=== PATIENT | female | born 1960 | race Caucasian/White ===

== ENCOUNTER 2020-11-12 11:19 | Inpatient (IN) ==
[2020-11-12] MEDS ORDERED: ALBUT/IPRATROP 3MG/0.5MG NEB 3 ML VIAL NEB ONE (11:52)
[2020-11-12 12:04] LABS: Hematocrit (blood only) 39.8 % (37-47); Hemoglobin 12.7 g/dL (12.0-16.0); Immature Granulocytes # (auto) 0.02 K/uL (0.00-0.02); Immature Granulocytes % (auto) 0.3 %; Lymphocytes # (auto) 0.36 K/uL (1.2-3.4); Lymphocytes % (auto) 4.8 %; Mean Corpuscular Hemoglobin 33.2 pg (25-34); Mean Corpuscular Hgb Conc 31.9 g/dL (32-36); Mean Corpuscular Volume 104.2 fL (80-100); Mean Platelet Volume 9.8 fL (7.4-10.4); Monocytes # (auto) 0.45 K/uL (0.11-0.59); Neutrophils # (auto) 6.72 K/uL (1.4-6.5); Neutrophils % (auto) 88.9 %; Platelet Count 244 K/uL (130-400); RDW Coefficient of Variation 14.3 % (11.5-14.5); RDW Standard Deviation 54.9 fL (36.4-46.3); Red Blood Count 3.82 M/uL (4.2-5.4); White Blood Count 7.55 K/uL (4.8-10.8)
[2020-11-12 12:11] LABS: Alanine Aminotransferase 60 U/L (12-78); Albumin Level 3.2 gm/dl (3.4-5.0); Aspartate Aminotransferase 33 U/L (15-37); BUN Creatinine Ratio 27.1 (10-20); Blood Urea Nitrogen 21 mg/dl (7-18); Carbon Dioxide 27 mmol/L (21-32); Chloride 100 mmol/L (98-107); Est GFR (African American) 98.8 ml/min; Est GFR (Non-African American) 85.3 ml/min; Glucose 95 mg/dl (70-99); Magnesium 1.1 mg/dl (1.8-2.4); Potassium 4.3 mmol/L (3.5-5.1); Sodium 134 mmol/L (136-145)
[2020-11-12 12:16] LABS: Albumin Globulin Ratio 0.9 (0.9-2); Alkaline Phosphatase 99 U/L (45-117); Bilirubin,Total 1.3 mg/dl (0.2-1); Creatine Kinase 100 U/L (26-192); Creatine Kinase MB 2.4 ng/ml (0.5-3.6); Globulin 3.5 gm/dl (2.5-4.0); NT Pro B Type Natriuretic Pept 236 pg/ml (0-900); Total Protein 6.7 gm/dl (6.4-8.2); Troponin I < 0.015 ng/ml (0-0.045)
--- NOTE | 2020-11-12 12:16 | XRay Report ---
XR chest 1V portable HISTORY: 60 years-old Female SEPSIS acute sepsis COMPARISON: None TECHNIQUE: Portable AP view of the chest FINDINGS: Cardiac silhouette is upper limits of normal in size. Pulmonary vascular congestion with mixed bilate ral reticular interstitial and alveolar opacities, most pronounced within the mid to lower lung zones . No pneumothorax or large pleural effusion. Blunting of the costophrenic angles. Degenerative change s of the shoulders and spine. Orthopedic surgical anchor of the left humeral head. IMPRESSION: 1. Bilateral mixed interstitial and alveolar opacities suspicious for multifocal pneumonia. 2. Possible trace pleural effusions. ACT 112: Negative or not required by law. The above report was generated using voice recognition software. It may contain grammatical, syntax o r spelling errors. Electronically signed by: Johnny Parker M.D. 11/12/2020 12:14 PM
[2020-11-12 12:25] LABS: Partial Thromboplastin Ratio 0.9; Partial Thromboplastin Time 22.8 Seconds (21.0-31.0); Prothrombin Time 10.1 Seconds (9.0-12.0)
[2020-11-12] MEDS ORDERED: methylPREDNISolone 125 MG/2 ML VIAL IV STA (12:45)
[2020-11-12] MEDS ORDERED: levoFLOXacin/D5W 750 MG/150 ML BAG IV STA (12:45)
[2020-11-12] MEDS ORDERED: PIPERACILLIN/TAZOBACTAM 4.5 GM/120 ML BAG IV ONE (12:45)
[2020-11-12] MEDS ORDERED: PIPERACILL/TAZOBAC CONSULT ACTIVE PRN ×2 (12:45→18:23)
[2020-11-12 13:12] LABS: Appearance Urine Clear (Clear); Bacteria Urine Automated Negative (Negative); Bilirubin Urine Negative (Negative); Blood Urine Negative (Negative); Color Urine Dark Yellow; Glucose Urine UA Negative (Negative); Ketones Urine Trace (Negative); Leukocyte Esterase Urine Trace (Negative); Nitrite Urine Negative (Negative); Protein Urine Negative (Negative); RBC Urine Automated 0-4 /hpf (0-4); Specific Gravity Urine 1.021 (1.000-1.030); Urobilinogen Urine Negative (Negative); pH Urine 5.5 (4.5-7.5)
[2020-11-12] MEDS ORDERED: OPTIRAY 320 125ml IV ONE (14:14)
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
--- NOTE | 2020-11-12 14:39 | CT Scan Report ---
CT angio chest PE protocol CT DOSE: 368.11 mGy.cm HISTORY: 60 years-old Female with PE. Acute shortness of breath with sepsis TECHNIQUE: Multiple CTA images of the chest were obtained after the intravenous administration of 120 ml Optiray. Coronal and sagittal MIPS were obtained from the axial data set and were submitted for review. All measurements were obtained according to NASCET criteria. A dose lowering technique was u tilized adhering to the principles of ALARA. COMPARISON: Chest radiograph of same day FINDINGS: CTA: The heart is normal in size. No pericardial effusion. Moderate coronary artery calcifications. Athero sclerosis of the aorta without aneurysm or dissection. Unremarkable pulmonary artery without filling defects identified to suggest pulmonary emboli. CT CHEST: No thyroid nodule. Mildly prominent paratracheal and subcarinal lymph nodes are likely reactive. No p neumothorax. Trace right pleural effusion. Emphysema with bronchial wall thickening suggestive of bro nchitis. Extensive dependent predominant segmental consolidation of the right lower lobe with additio nal patchy consolidative opacities of the left lower lobe and to lesser extent upper and right middle lobes. No overt pulmonary edema. No acute process of the imaged upper abdomen. Unremarkable soft tissues. No acute fracture. Motion de graded exam. IMPRESSION: 1. No pulmonary emboli. 2. Extensive bilateral segmental consolidative opacities, most pronounced within the dependent right greater than left lower lobes is compatible with multifocal pneumonia, possibly secondary to aspirati on. 3. Emphysema. 4. Trace right pleural effusion. ACT 112: Negative or not required by law. The above report was generated using voice recognition software. It may contain grammatical, syntax o r spelling errors. Electronically signed by: Johnny Parker M.D. 11/12/2020 2:38 PM
[2020-11-12 15:17] LABS: Base Excess ABG -2.4 mEq/L (-9-1.8); HCO3 ABG 24 mmol/L (19-24); PCO2 ABG 48 mmHg (35-46); PO2 ABG 84 mmHg (80-95); pH ABG 7.32 (7.35-7.45)
[2020-11-12 15:18] LABS: Allen Test Pos (Pos)
--- NOTE | 2020-11-12 16:08 | Emergency Department Note ---
Impression & Plan Acute respiratory failure, COPD (chronic obstructive pulmonary disease), Multifocal pneumonia ED Provider Note NAME: DENISE GALARZA AGE: 60 SEX: F : 1960 ARRIVES VIA: Ambulance INFORMANT: Patient, EMS, PCP ED PROVIDER(S): Kumar Dow MD CHIEF COMPLAINT: SOB HPI: Previous outside records reviewed revealed that the patient was admitted to rehabilitation facility due to prolonged intubation from multifocal pneumonia/COPD/exposure to pesticide. This is a 60-year-old female sent in by her rehab facility over concerns of the patient is requiring more oxygen. The patient was placed on a prednisone taper as well as azithromycin at the beginning of October. Several days later the patient was exposed to pesticide and required intubation. She is finishing her prednisone taper currently. She reports increasing shortness of breath made worse anytime the patient moves. She reports being on 2 L of oxygen. EMS reports that they gave the patient 1 breathing treatment. The patient reports some improvement in her symptoms. She reports rest and oxygen make her symptoms somewhat better. EMS also reports that they recommended CPAP for the patient however she refused. ROS: See above HPI for pertinent positives & negatives. A total of 10 systems reviewed and were otherwise negative. PAST MEDICAL HISTORY: See Below PAST SURGICAL HISTORY: See Below FAMILY HISTORY: See Below SOCIAL HISTORY: See Below HOME MEDICATIONS: See Below ALLERGIES: See Below VITALS: See Below PHYSICAL EXAMINATION: VITAL SIGNS - Vital signs and nursing notes were reviewed. GENERAL - 60-year-old female appearing stated age who is in moderate distress. Patient speaks in 3 word sentences SKIN - Without rashes. HEAD - NC/AT. EYES - PERRL with EOMI bilaterally. Sclera anicteric. Palpebral conjunctiva pink and moist with no injection noted. EARS - No deformities of external structures noted on gross examination bilaterally. NOSE - Midline and without cyanosis. No epistaxis or purulent drainage noted. Septum midline without deviation or septal hematoma noted. MOUTH/OROPHARYNX - Without perioral cyanosis. Buccal mucosa pink and moist and without leukoplakia. Tongue midline with equal elevation of palate bilaterally. No tonsillar hypertrophy, erythema, or exudates noted. NECK - Neck with FROM. Supple to palpation. LUNGS - Chest wall symmetric without accessory muscle use, intercostals retractions, or central cyanosis. Bilateral wheezing present CARDIAC - RRR with S1/S2. No murmur, rubs, or gallops appreciated. ABDOMEN - Abdominal contour without pulsations or visible masses. BS normoactive all four quadrants. No tenderness, palpable masses, hepatosplenomegaly, or ascites noted. EXTREMITIES - No clubbing or peripheral cyanosis. No pretibial edema present. +3/5 radial, posterior tibial, and dorsalis pedis pulses palpated throughout. +5/5 strength noted in UE/LE bilaterally. NEUROLOGIC - Cranial nerves II through XII grossly intact. Sensory intact to li ght touch throughout. Patellar reflexes +2/4. PSYCH - A&Ox3 and cooperates fully with examiner. Pt is very pleasant and interacts well with examiner. MEDICAL DECISION MAKING: Patient was seen and evaluated as above in room B4. Review was performed of nursing notes and vital signs. I did review pertinent previous visits and patient history. After obtaining a thorough history and physical examination the above work up was performed. This 60-year-old female who presents emergency department complaining of shortness of breath. Patient was immediately placed on BiPAP upon arrival to the emergency department. Blood cultures were obtained. The patient was started on broad-spectrum antibiotics her PCO2 was found to be elevated she also has an elevation in her pro calcitonin. Chest x-ray as well as CAT scan were interpreted by me and are concerning for multifocal pneumonia. Based on this the patient was started on Rocephin as well as Levaquin. Because of the increased oxygen demand she was also started on Solu-Medrol. I did discuss the case with the hospitalist service who did agree to admit the patient. Patient is in agreement with the treatment plan. An order was placed for continuous cardiac monitoring. The monitor shows a rate of 92 with Normal Sinus rhythm. The patient was evaluated during a period of high volume and high acuity during the global COVID-19 pandemic, and that diagnosis was suspected/considered upon their initial presentation. Their evaluation, treatment and testing was consistent with current guidelines for patients who present with complaints or symptoms that may be related to COVID-19. Patient was seen while provider was wearing PPE. Triage Nursing notes reviewed. Prior medical records reviewed Vital Signs: reviewed and remarkable for tachycardia, hypotension, tachypnea Differential diagnosis: Reactive airway disease, pneumonia, pneumothorax, COPD, CHF, infections, cardiac ischemia, pulmonary embolism, musculoskeletal, gastrointestinal, as well as other pathologies. ER treatment provided: See below Diagnostics interpreted by me: ECG: Sinus tachycardia no ST elevation or depression QTC is 416 ventricular rate is 122 no previous EKG available to compare to. Laboratory studies: As stated above and show below. Imaging studies: See below Consultation(s): InternalMedicine ED COURSE: PDMP:reviewed and no issues Critical Care: I have personally spent greater than 30 minutes of critical care time in the direct management of this patient. This includes bedside care, interpretation of diagnostic studies, and testing, discussion with consultants, patient, and family members, and other required patient management activities. This 30 minutes is in excess of all separately billable procedures. Past Med/Surg History Social History Smoking Status: Former smoker Hx Alcohol Use: Yes Hx Substance Use: No Preferred Language: French Communication Ability: Effective Coffee Blender Required: No Beliefs That Will Affect Care: None Current Living Situation: Family Feels Safe at Home: Yes Assistive Devices: Walker Allergies Allergies Allergy/AdvReac Type Severity Reaction Status Date / Time solifenacin Allergy Unknown Unverified 11/12/20 13:12 Home Meds Home Medications Medication Instructions Recorded Confirmed acetaminophen 500 mg tablet 1,000 mg PO TID 11/12/20 11/12/20 albuterol sulfate 90 mcg/actuation 2 puff INHALATION Q4H PRN 11/12/20 11/12/20 aerosol inhaler aspirin 81 mg tablet,delayed 81 mg PO DAILY 11/12/20 11/12/20 release atorvastatin 20 mg tablet 20 mg PO HS 11/12/20 11/12/20 cyanocobalamin (vitamin B-12) 1,000 mcg PO DAILY 11/12/20 11/12/20 1,000 mcg tablet (Vitamin B-12) dicyclomine 10 mg capsule 10 mg PO TID PRN 11/12/20 11/12/20 diltiazem HCl 240 mg capsule,24 240 mg PO DAILY 11/12/20 11/12/20 hr,extended release enoxaparin 40 mg/0.4 mL 40 mg SUBCUT DAILY 11/12/20 11/12/20 subcutaneous syringe ergocalciferol (vitamin D2) 1,250 1,250 mcg PO WK 11/12/20 11/12/20 mcg (50,000 unit) capsule (Vitamin D2) gabapentin 800 mg tablet 1,200 mg PO TID 11/12/20 11/12/20 ibuprofen 800 mg tablet 800 mg PO TID PRN 11/12/20 11/12/20 ipratropium 0.5 mg-albuterol 3 mg 3 ml INHALATION Q4H PRN 11/12/20 11/12/20 (2.5 mg base)/3 mL nebulization soln iron polysaccharide complex-iron 1 tab PO DAILY 11/12/20 11/12/20 heme polypeptide 28 mg tablet lamotrigine 25 mg tablet (Lamictal) 50 mg PO Q12H 11/12/20 11/12/20 levothyroxine 75 mcg tablet 75 mcg PO DAILY 11/12/20 11/12/20 metoprolol succinate 25 mg 25 mg PO BID 11/12/20 11/12/20 tablet,extended release 24 hr nicotine 14 mg/24 hr daily 1 patch TRANSDERMAL DAILY 11/12/20 11/12/20 transdermal patch pantoprazole 20 mg tablet,delayed 20 mg PO BIDM 11/12/20 11/12/20 release prednisone 20 mg tablet 20 mg PO DAILY 11/12/20 11/12/20 sennosides 8.6 mg tablet (Senokot) 8.6 mg PO QDL 11/12/20 11/12/20 umeclidinium 62.5 mcg-vilanterol 1 inh INHALATION DAILY 11/12/20 11/12/20 25 mcg/actuation powdr for inhalation (Anoro Ellipta) venlafaxine 150 mg 150 mg PO DAILY 11/12/20 11/12/20 capsule,extended release 24 hr Results & Data (ED) Vital Signs Vital Signs - 24 hr 11/12/20 11:26 11/12/20 11:30 11/12/20 11:51 Temperature 37.2 C Temperature Source Oral Pulse Rate 122 H 123 H 119 H Pulse Rate [Apical] 123 H Pulse Rate from SpO2 Sensor 122 H 118 H Respiratory Rate 24 20 33 H Respiratory Effort / Characteristics Spontaneous Labored Respiratory Depth Normal Respiratory Pattern Regular Blood Pressure 98/69 L 98/69 L 118/92 Blood Pressure [Left Arm] 98/69 L Blood Pressure Mean 78 78 100 Blood Pressure Mean [Left Arm] 78 Pulse Oximetry 95 96 96 Oxygen Delivery Method Oxymask Oxymask Oxymask Oxygen Flow Rate 10 10 10 Fraction of Inspired Oxygen Sepsis Recent Fever Within 48 Hours No Sepsis New/Unexplained Change in Mental Status No Sepsis Action Taken by Nursing Physician Notified 11/12/20 11:57 11/12/20 11:59 11/12/20 12:01 Temperature Temperature Source Pulse Rate 118 H 116 H 116 H Pulse Rate [Apical] Pulse Rate from SpO2 Sensor 117 H Respiratory Rate 30 H 29 H 31 H Respiratory Effort / Characteristics Spontaneous Respiratory Depth Normal Respiratory Pattern Tachypnea Blood Pressure 118/81 Blood Pressure [Left Arm] Blood Pressure Mean 93 Blood Pressure Mean [Left Arm] Pulse Oximetry 96 95 95 Oxygen Delivery Method Oxymask BiPAP Nebulizer Oxygen Flow Rate 10 Fraction of Inspired Oxygen 60 Sepsis Recent Fever Within 48 Hours Sepsis New/Unexplained Change in Mental Status Sepsis Action Taken by Nursing 11/12/20 12:14 11/12/20 12:41 11/12/20 13:00 Temperature Temperature Source Pulse Rate 105 H Pulse Rate [Apical] 113 H Pulse Rate from SpO2 Sensor 105 H Respiratory Rate 32 H 30 H 27 H Respiratory Effort / Characteristics Non-Labored Spontaneous Respiratory Depth Respiratory Pattern Blood Pressure 118/81 104/74 Blood Pressure [Left Arm] Blood Pressure Mean 93 84 Blood Pressure Mean [Left Arm] Pulse Oximetry 98 99 99 Oxygen Delivery Method BiPAP BiPAP Nebulizer BiPAP Nebulizer Oxygen Flow Rate Fraction of Inspired Oxygen 60 Sepsis Recent Fever Within 48 Hours Sepsis New/Unexplained Change in Mental Status Sepsis Action Taken by Nursing 11/12/20 13:30 11/12/20 14:02 11/12/20 14:30 Temperature Temperature Source Pulse Rate 112 H 106 H 98 H Pulse Rate [Apical] Pulse Rate from SpO2 Sensor 98 H Respiratory Rate 23 28 H 24 Respiratory Effort / Characteristics Respiratory Depth Respiratory Pattern Blood Pressure 110/75 103/69 99/63 L Blood Pressure [Left Arm] Blood Pressure Mean 86 80 75 Blood Pressure Mean [Left Arm] Pulse Oximetry 98 97 Oxygen Delivery Method BiPAP BiPAP Oxygen Flow Rate Fraction of Inspired Oxygen Sepsis Recent Fever Within 48 Hours Sepsis New/Unexplained Change in Mental Status Sepsis Action Taken by Nursing 11/12/20 15:25 Temperature Temperature Source Pulse Rate 92 H Pulse Rate [Apical] Pulse Rate from SpO2 Sensor Respiratory Rate 33 H Respiratory Effort / Characteristics Spontaneous Respiratory Depth Respiratory Pattern Tachypnea Blood Pressure Blood Pressure [Left Arm] Blood Pressure Mean Blood Pressure Mean [Left Arm] Pulse Oximetry 96 Oxygen Delivery Method Oxygen Flow Rate Fraction of Inspired Oxygen 40 Sepsis Recent Fever Within 48 Hours Sepsis New/Unexplained Change in Mental Status Sepsis Action Taken by [facility] Medications Current Medication List: was personally reviewed by me Laboratory Data Attestation: I reviewed the patient's lab results. Result diagrams: 11/14/20 07:13 11/14/20 07:13 Lab Results 11/12/20 11/12/20 11/12/20 Range/Units 11:36 11:36 11:36 WBC 7.55 (4.8-10.8) K/uL RBC 3.82 L (4.2-5.4) M/uL Hgb 12.7 (12.0-16.0) g/dL Hct 39.8 (37-47) % MCV 104.2 H (80-100) fL MCH 33.2 (25-34) pg MCHC 31.9 L (32-36) g/dL RDW Std Deviation 54.9 H (36.4-46.3) fL RDW Coeff of Pau 14.3 (11.5-14.5) % Plt Count 244 (130-400) K/uL MPV 9.8 (7.4-10.4) fL Immature Gran % (Auto) 0.3 % Neut % (Auto) 88.9 % Lymph % (Auto) 4.8 % Storey % (Auto) 6.0 % Eos % (Auto) 0.0 % Baso % (Auto) 0.0 % Neut # (Auto) 6.72 H (1.4-6.5) K/uL Lymph # (Auto) 0.36 L (1.2-3.4) K/uL Storey # (Auto) 0.45 (0.11-0.59) K/uL Eos # (Auto) 0.00 (0-0.5) K/uL Baso # (Auto) 0.00 (0-0.2) K/uL Immature Gran # (Auto) 0.02 (0.00-0.02) K/uL PT 10.1 (9.0-12.0) Seconds INR 1.0 (0.9-1.1) APTT 22.8 (21.0-31.0) Seconds PTT Ratio 0.9 Sodium 134 L (136-145) mmol/L Potassium 4.3 (3.5-5.1) mmol/L Chloride 100 (98-107) mmol/L Carbon Dioxide 27 (21-32) mmol/L Anion Gap 7.0 (3-11) BUN 21 H (7-18) mg/dl Creatinine 0.76 (0.6-1.2) mg/dl Est Cr Clr Drug Dosing 75.0 ml/min Est GFR ( Amer) 98.8 ml/min Est GFR (Non-Af Amer) 85.3 ml/min BUN/Creatinine Ratio 27.1 H (10-20) Glucose 95 (70-99) mg/dl Lactate (0.4-2.0) mmol/L Calcium 9.0 (8.5-10.1) mg/dl Magnesium 1.1 L (1.8-2.4) mg/dl Total Bilirubin 1.3 H (0.2-1) mg/dl AST 33 (15-37) U/L ALT 60 (12-78) U/L Alkaline Phosphatase 99 (45-117) U/L Total Creatine Kinase 100 (26-192) U/L CK-MB (CK-2) 2.4 (0.5-3.6) ng/ml CK/CKMB % Calc 2.4 (0-3.0) Troponin I < 0.015 (0-0.045) ng/ml NT-Pro-B Natriuret Pep 236 (0-900) pg/ml Total Protein 6.7 (6.4-8.2) gm/dl Albumin 3.2 L (3.4-5.0) gm/dl Globulin 3.5 (2.5-4.0) gm/dl Albumin/Globulin Ratio 0.9 (0.9-2) Procalcitonin (0-0.5) ng/ml Urine Color Urine Appearance (Clear) Urine pH (4.5-7.5) Ur Specific Marbury (1.000-1.030) Urine Protein (Negative) Urine Glucose (UA) (Negative) Urine Ketones (Negative) Urine Blood (Negative) Urine Nitrite (Negative) Urine Bilirubin (Negative) Urine Urobilinogen (Negative) Ur Leukocyte Esterase (Negative) Urine WBC (Auto) (0-5) /hpf Urine RBC (Auto) (0-4) /hpf U Hyaline Cast (Auto) (0-5) /lpf U Epithel Cells (Auto) (0-5) /lpf Urine Bacteria (Auto) (Negative) COVID-19 Eval Order SARS-CoV-2 (PCR) (Negative) Hepatitis C Ab Screen (Neg) 11/12/20 11/12/20 11/12/20 Range/Units 11:36 11:36 11:45 WBC (4.8-10.8) K/uL RBC (4.2-5.4) M/uL Hgb (12.0-16.0) g/dL Hct (37-47) % MCV (80-100) fL MCH (25-34) pg MCHC (32-36) g/dL RDW Std Deviation (36.4-46.3) fL RDW Coeff of Pau (11.5-14.5) % Plt Count (130-400) K/uL MPV (7.4-10.4) fL Immature Gran % (Auto) % Neut % (Auto) % Lymph % (Auto) % Storey % (Auto) % Eos % (Auto) % Baso % (Auto) % Neut # (Auto) (1.4-6.5) K/uL Lymph # (Auto) (1.2-3.4) K/uL Storey # (Auto) (0.11-0.59) K/uL Eos # (Auto) (0-0.5) K/uL Baso # (Auto) (0-0.2) K/uL Immature Gran # (Auto) (0.00-0.02) K/uL PT (9.0-12.0) Seconds INR (0.9-1.1) APTT (21.0-31.0) Seconds PTT Ratio Sodium (136-145) mmol/L Potassium (3.5-5.1) mmol/L Chloride (98-107) mmol/L Carbon Dioxide (21-32) mmol/L Anion Gap (3-11) BUN (7-18) mg/dl Creatinine (0.6-1.2) mg/dl Est Cr Clr Drug Dosing ml/min Est GFR ( Amer) ml/min Est GFR (Non-Af Amer) ml/min BUN/Creatinine Ratio (10-20) Glucose (70-99) mg/dl Lactate (0.4-2.0) mmol/L Calcium (8.5-10.1) mg/dl Magnesium (1.8-2.4) mg/dl Total Bilirubin (0.2-1) mg/dl AST (15-37) U/L ALT (12-78) U/L Alkaline Phosphatase (45-117) U/L Total Creatine Kinase (26-192) U/L CK-MB (CK-2) (0.5-3.6) ng/ml CK/CKMB % Calc (0-3.0) Troponin I (0-0.045) ng/ml NT-Pro-B Natriuret Pep (0-900) pg/ml Total Protein (6.4-8.2) gm/dl Albumin (3.4-5.0) gm/dl Globulin (2.5-4.0) gm/dl Albumin/Globulin Ratio (0.9-2) Procalcitonin 7.70 H (0-0.5) ng/ml Urine Color Urine Appearance (Clear) Urine pH (4.5-7.5) Ur Specific [place] (1.000-1.030) Urine Protein (Negative) Urine Glucose (UA) (Negative) Urine Ketones (Negative) Urine Blood (Negative) Urine Nitrite (Negative) Urine Bilirubin (Negative) Urine Urobilinogen (Negative) Ur Leukocyte Esterase (Negative) Urine WBC (Auto) (0-5) /hpf Urine RBC (Auto) (0-4) /hpf U Hyaline Cast (Auto) (0-5) /lpf U Epithel Cells (Auto) (0-5) /lpf Urine Bacteria (Auto) (Negative) COVID-19 Eval Order Covid19 at [facility] SARS-CoV-2 (PCR) (Negative) Hepatitis C Ab Screen Neg (Neg) 11/12/20 11/12/20 11/12/20 Range/Units 11:45 12:20 12:54 WBC (4.8-10.8) K/uL RBC (4.2-5.4) M/uL Hgb (12.0-16.0) g/dL Hct (37-47) % MCV (80-100) fL MCH (25-34) pg MCHC (32-36) g/dL RDW Std Deviation (36.4-46.3) fL RDW Coeff of Pau (11.5-14.5) % Plt Count (130-400) K/uL MPV (7.4-10.4) fL Immature Gran % (Auto) % Neut % (Auto) % Lymph % (Auto) % Storey % (Auto) % Eos % (Auto) % Baso % (Auto) % Neut # (Auto) (1.4-6.5) K/uL Lymph # (Auto) (1.2-3.4) K/uL Storey # (Auto) (0.11-0.59) K/uL Eos # (Auto) (0-0.5) K/uL Baso # (Auto) (0-0.2) K/uL Immature Gran # (Auto) (0.00-0.02) K/uL PT (9.0-12.0) Seconds INR (0.9-1.1) APTT (21.0-31.0) Seconds PTT Ratio Sodium (136-145) mmol/L Potassium (3.5-5.1) mmol/L Chloride (98-107) mmol/L Carbon Dioxide (21-32) mmol/L Anion Gap (3-11) BUN (7-18) mg/dl Creatinine (0.6-1.2) mg/dl Est Cr Clr Drug Dosing ml/min Est GFR ( Amer) ml/min Est GFR (Non-Af Amer) ml/min BUN/Creatinine Ratio (10-20) Glucose (70-99) mg/dl Lactate 1.6 (0.4-2.0) mmol/L Calcium (8.5-10.1) mg/dl Magnesium (1.8-2.4) mg/dl Total Bilirubin (0.2-1) mg/dl AST (15-37) U/L ALT (12-78) U/L Alkaline Phosphatase (45-117) U/L Total Creatine Kinase (26-192) U/L CK-MB (CK-2) (0.5-3.6) ng/ml CK/CKMB % Calc (0-3.0) Troponin I (0-0.045) ng/ml NT-Pro-B Natriuret Pep (0-900) pg/ml Total Protein (6.4-8.2) gm/dl Albumin (3.4-5.0) gm/dl Globulin (2.5-4.0) gm/dl Albumin/Globulin Ratio (0.9-2) Procalcitonin (0-0.5) ng/ml Urine Color Dark Yellow Urine Appearance Clear (Clear) Urine pH 5.5 (4.5-7.5) Ur Specific Marbury 1.021 (1.000-1.030) Urine Protein Negative (Negative) Urine Glucose (UA) Negative (Negative) Urine Ketones Trace H (Negative) Urine Blood Negative (Negative) Urine Nitrite Negative (Negative) Urine Bilirubin Negative (Negative) Urine Urobilinogen Negative (Negative) Ur Leukocyte Esterase Trace H (Negative) Urine WBC (Auto) 1-5 (0-5) /hpf Urine RBC (Auto) 0-4 (0-4) /hpf U Hyaline Cast (Auto) 1-5 (0-5) /lpf U Epithel Cells (Auto) 10-20 H (0-5) /lpf Urine Bacteria (Auto) Negative (Negative) COVID-19 Eval Order SARS-CoV-2 (PCR) NEGATIVE (Negative) Hepatitis C Ab Screen (Neg) Administered Medications Acetaminophen (Acetaminophen 500 Mg Tab) 500 mg PO TID [facility] Stop: 12/12/20 20:59 Last Admin: 11/14/20 13:37 Dose: 500 mg Documented by: [id number] Admin: 11/14/20 08:55 Dose: 500 mg Documented by: [id number] Admin: 11/13/20 20:53 Dose: 500 mg Documented by: [id number] Admin: 11/13/20 15:00 Dose: 500 mg Documented by: [id number] Admin: 11/13/20 08:03 Dose: 500 mg Documented by: [id number] Admin: 11/12/20 20:05 Dose: 500 mg Documented by: [id number] Aspirin (Aspirin 81 Mg Ectab) 81 mg PO DAILY [facility] Stop: 12/13/20 08:59 Last Admin: 11/14/20 08:53 Dose: 81 mg Documented by: [id number] Admin: 11/13/20 08:03 Dose: 81 mg Documented by: [id number] Atorvastatin Calcium (Atorvastatin 20 Mg Tab) 20 mg PO HS [facility] Stop: 12/12/20 20:59 Last Admin: 11/13/20 20:52 Dose: 20 mg Documented by: [id number] Admin: 11/12/20 20:05 Dose: 20 mg Documented by: [id number] Cyanocobalamin (Cyanocobalamin 500 Mcg Tablet (Vitamin B-12)) 1,000 mcg PO DAILY [facility] Stop: 12/13/20 08:59 Last Admin: 11/14/20 08:53 Dose: 1,000 mcg Documented by: [id number] Admin: 11/13/20 08:04 Dose: 1,000 mcg Documented by: [id number] Diltiazem HCl (Diltiazem Hcl 240 Mg Capcr) 240 mg PO DAILY [facility] Stop: 12/13/20 08:59 Last Admin: 11/14/20 08:53 Dose: 240 mg Documented by: [id number] Admin: 11/13/20 08:09 Dose: 240 mg Documented by: [id number] Enoxaparin Sodium (Enoxaparin Inj 40 Mg/0.4 Ml Syr) 40 mg SQ DAILY [facility] Stop: 12/13/20 08:59 Last Admin: 11/14/20 08:54 Dose: 40 mg Documented by: [id number] Admin: 11/13/20 08:01 Dose: 40 mg Documented by: [id number] Gabapentin (Gabapentin 600 Mg Tab) 1,200 mg PO TID [facility] Stop: 12/12/20 20:59 Last Admin: 11/14/20 15:00 Dose: 1,200 mg Documented by: [id number] Admin: 11/14/20 08:55 Dose: 1,200 mg Documented by: [id number] Admin: 11/13/20 20:52 Dose: 1,200 mg Documented by: [id number] Admin: 11/13/20 14:59 Dose: 1,200 mg Documented by: [id number] Admin: 11/13/20 08:02 Dose: 1,200 mg Documented by: [id number] Admin: 11/12/20 20:04 Dose: 1,200 mg Documented by: [id number] Guaifenesin (Guaifenesin 600 Mg Tabcr) 600 mg PO Q12 [facility] Stop: 12/13/20 20:59 Last Admin: 11/14/20 08:55 Dose: 600 mg Documented by: [id number] Admin: 11/13/20 20:54 Dose: 600 mg Documented by: [id number] Piperacillin Sod/Tazobactam (Sod 3.375 gm/ Dextrose) 115 mls @ 28.75 mls/hr IV Q8H [facility]; Protocol Stop: 11/19/20 18:59 Last Infusion: 11/14/20 15:11 Dose: 0 mls/hr Documented by: [id number] Admin: 11/14/20 11:25 Dose: 28.8 mls/hr Documented by: [id number] Infusion: 11/14/20 06:05 Dose: 0 mls/hr Documented by: [id number] Admin: 11/14/20 01:55 Dose: 28.8 mls/hr Documented by: [id number] Infusion: 11/14/20 00:00 Dose: 0 mls/hr Documented by: [id number] Admin: 11/13/20 19:34 Dose: 28 mls/hr Documented by: [id number] Infusion: 11/13/20 18:03 Dose: 0 mls/hr Documented by: [id number] Infusion: 11/13/20 17:09 Dose: 28 mls/hr Documented by: [id number] Infusion: 11/13/20 17:07 Dose: 0 mls/hr Documented by: [id number] Infusion: 11/13/20 14:32 Dose: 28 mls/hr Documented by: [id number] Infusion: 11/13/20 13:20 Dose: 0 mls/hr Documented by: [id number] Admin: 11/13/20 12:00 Dose: 28 mls/hr Documented by: [id number] Infusion: 11/13/20 08:10 Dose: 0 mls/hr Documented by: [id number] Admin: 11/13/20 03:53 Dose: 28 mls/hr Documented by: [id number] Infusion: 11/12/20 22:36 Dose: 0 mls/hr Documented by: [id number] Admin: 11/12/20 19:33 Dose: 28.8 mls/hr Documented by: [id number] Lamotrigine (Lamotrigine 25 Mg Tab) 50 mg PO Q12H [facility] Stop: 12/12/20 18:22 Last Admin: 11/14/20 06:01 Dose: 50 mg Documented by: [id number] Admin: 11/13/20 17:07 Dose: 50 mg Documented by: [id number] Admin: 11/13/20 05:39 Dose: 50 mg Documented by: [id number] Admin: 11/12/20 20:06 Dose: 50 mg Documented by: [id number] Levothyroxine Sodium (Levothyroxine Sodium 75 Mcg Tablet) 75 mcg PO DAILYBB [facility] Stop: 12/13/20 06:29 Last Admin: 11/14/20 06:02 Dose: 75 mcg Documented by: [id number] Admin: 11/13/20 05:39 Dose: 75 mcg Documented by: [id number] Metoprolol Succinate (Metoprolol Succ 25mg Ext Rel Tab) 25 mg PO BID [facility] Stop: 12/12/20 20:59 Last Admin: 11/14/20 08:54 Dose: 25 mg Documented by: [id number] Admin: 11/13/20 20:51 Dose: 25 mg Documented by: [id number] Admin: 11/13/20 08:08 Dose: 25 mg Documented by: [id number] Admin: 11/12/20 20:03 Dose: 25 mg Documented by: [id number] Miscellaneous (Remove Nicoderm Patch) 1 ea N/A QAM [facility] Stop: 12/13/20 08:59 Last Admin: 11/14/20 08:55 Dose: 1 ea Documented by: [id number] Admin: 11/13/20 08:09 Dose: Not Given Documented by: [id number] Nicotine (Nicotine 14 Mg/24 Hr Patch) 14 mg TD QAM [facility] Stop: 12/13/20 08:59 Last Admin: 11/14/20 08:54 Dose: 14 mg Documented by: [id number] Admin: 11/13/20 08:01 Dose: 14 mg Documented by: [id number] Pantoprazole Sodium (Pantoprazole 40 Mg Tab) 40 mg PO BIDM [facility] Stop: 12/12/20 19:29 Last Admin: 11/14/20 08:53 Dose: 40 mg Documented by: [id number] Admin: 11/13/20 17:07 Dose: 40 mg Documented by: [id number] Admin: 11/13/20 08:03 Dose: 40 mg Documented by: [id number] Admin: 11/12/20 20:04 Dose: 40 mg Documented by: [id number] Polysaccharide Iron Complex (Iron Polysaccharide Complex 150 Mg Capsule) 150 mg PO DAILY [facility] Stop: 12/13/20 08:59 Last Admin: 11/14/20 08:53 Dose: 150 mg Documented by: [id number] Admin: 11/13/20 09:29 Dose: Not Given Documented by: [id number] Potassium Chloride (Potassium Chloride Crtab 20 Meq Tabcr) 20 meq PO BID [facility] Stop: 11/14/20 21:01 Last Admin: 11/14/20 10:01 Dose: 20 meq Documented by: [id number] Sennosides (Senna 8.6 Mg Tab) 8.6 mg PO QDL [facility] Stop: 12/13/20 11:29 Last Admin: 11/14/20 11:26 Dose: Not Given Documented by: [id number] Admin: 11/13/20 12:02 Dose: Not Given Documented by: [id number] Umeclidinium/Vilanterol (Umeclidinium/Vilanterol 62.5/25mcg 7 Puffs/Inhaler) 1 puffs INH DAILY [facility] Stop: 12/13/20 08:59 Last Admin: 11/14/20 08:55 Dose: 1 puffs Documented by: [id number] Admin: 11/13/20 08:09 Dose: 1 puffs Documented by: [id number] Venlafaxine HCl (Venlafaxine Hcl Xr 150 Mg Capxr) 150 mg PO DAILY LEIF Stop: 12/13/20 08:59 Last Admin: 11/14/20 08:54 Dose: 150 mg Documented by: [id number] Admin: 11/13/20 08:02 Dose: 150 mg Documented by: [id number] Discontinued Medications Albuterol (Albut/Ipratrop 3mg/0.5mg Neb 3 Ml Vial) 12 ml NEB ONE ONE Stop: 11/12/20 11:53 Last Admin: 11/12/20 12:13 Dose: 12 ml Documented by: [id number] Piperacillin Sod/Tazobactam Sod (Zosyn) 4.5 gm in 120 mls @ 240 mls/hr IV NOW ONE Stop: 11/12/20 13:14 Last Infusion: 11/12/20 13:59 Dose: 0 mls/hr Documented by: [id number] Admin: 11/12/20 13:02 Dose: 240 mls/hr Documented by: [id number] Levofloxacin/Dextrose (Levaquin/D5w) 750 mg in 150 mls @ 100 mls/hr IV NOW STA Stop: 11/12/20 14:14 Last Infusion: 11/12/20 22:37 Dose: 0 mls/hr Documented by: [id number] Admin: 11/12/20 14:31 Dose: 100 mls/hr Documented by: [id number] Sodium Chloride (Nss 1000ml) 1,000 mls @ 100 mls/hr IV .Q10H LEIF Stop: 12/12/20 18:22 Last Infusion: 11/13/20 02:59 Dose: 0 mls/hr Documented by: [id number] Infusion: 11/13/20 02:58 Dose: 0 mls/hr Documented by: [id number] Infusion: 11/13/20 02:57 Dose: 0 mls/hr Documented by: [id number] Admin: 11/12/20 19:34 Dose: 100 mls/hr Documented by: [id number] Vancomycin HCl 1,750 mg/ (Sodium Chloride) 535 mls @ 200 mls/hr IV TODAY@1900 LEIF Stop: 11/12/20 21:41 Last Infusion: 11/12/20 22:37 Dose: 0 mls/hr Documented by: [id number] Admin: 11/12/20 19:33 Dose: 200 mls/hr Documented by: [id number] Methylprednisolone 40 mg/ (Syringe) 0.64 mls @ 1.5 mls/min IV Q6H [facility] Stop: 12/12/20 19:59 Last Admin: 11/13/20 15:58 Dose: Not Given Documented by: [id number] Admin: 11/13/20 08:01 Dose: 1.5 mls/min Documented by: [id number] Admin: 11/13/20 01:54 Dose: 1.5 mls/min Documented by: [id number] Admin: 11/12/20 20:02 Dose: 1.5 mls/min Documented by: [id number] Methylprednisolone 40 mg/ (Syringe) 0.64 mls @ 1.5 mls/min IV DAILY LEIF Stop: 12/14/20 08:59 Last Admin: 11/14/20 08:53 Dose: 1.5 mls/min Documented by: [id number] Magnesium Sulfate/Dextrose (Magnesium Sulfate / D5w) 1 gm in 100 mls @ 50 mls/hr IV Q2H LEIF Stop: 11/13/20 23:59 Last Infusion: 11/14/20 00:01 Dose: 0 mls/hr Documented by: [id number] Admin: 11/13/20 21:22 Dose: 50 mls/hr Documented by: [id number] Infusion: 11/13/20 21:22 Dose: 50 mls/hr Documented by: [id number] Admin: 11/13/20 19:26 Dose: 50 mls/hr Documented by: [id number] Infusion: 11/13/20 19:26 Dose: 50 mls/hr Documented by: [id number] Admin: 11/13/20 18:26 Dose: 50 mls/hr Documented by: [id number] Ioversol (Optiray 320 125ml) 120 ml IV ONCE ONE Stop: 11/12/20 14:15 Last Admin: 11/12/20 14:14 Dose: 120 ml Documented by: [id number] Methylprednisolone (Methylprednisolone 125 Mg/2 Ml Vial) 60 mg IV NOW STA Stop: 11/12/20 12:46 Last Admin: 11/12/20 13:02 Dose: 60 mg Documented by: [id number] Methylprednisolone (Methylprednisolone 40 Mg/Ml Vial) 40 mg IV Q6H LEIF Stop: 12/12/20 14:30 Last Admin: 11/13/20 02:59 Dose: Not Given Documented by: [id number] Imaging Data Radiologist's Impression: Chest X-Ray 11/12/20 11:51 XR chest 1V portable HISTORY: 60 years-old Female SEPSIS acute sepsis COMPARISON: None TECHNIQUE: Portable AP view of the chest FINDINGS: Cardiac silhouette is upper limits of normal in size. Pulmonary vascular congestion with mixed bilateral reticular interstitial and alveolar opacities, most pronounced within the mid to lower lung zones. No pneumothorax or large pleural effusion. Blunting of the costophrenic angles. Degenerative changes of the shoulders and spine. Orthopedic surgical anchor of the left humeral head. IMPRESSION: 1. Bilateral mixed interstitial and alveolar opacities suspicious for multifocal pneumonia. 2. Possible trace pleural effusions. ACT 112: Negative or not required by law. The above report was generated using voice recognition software. It may contain grammatical, syntax or spelling errors. Electronically signed by: Johnny Parker M.D. 11/12/2020 12:14 PM Chest CTA 11/12/20 11:53 CT angio chest PE protocol CT DOSE: 368.11 mGy.cm HISTORY: 60 years-old Female with PE. Acute shortness of breath with sepsis TECHNIQUE: Multiple CTA images of the chest were obtained after the intravenous administration of 120 ml Optiray. Coronal and sagittal MIPS were obtained from the axial data set and were submitted for review. All measurements were obtained according to NASCET criteria. A dose lowering technique was utilized adhering to the principles of ALARA. COMPARISON: Chest radiograph of same day FINDINGS: CTA: The heart is normal in size. No pericardial effusion. Moderate coronary artery calcifications. Atherosclerosis of the aorta without aneurysm or dissection. Unremarkable pulmonary artery without filling defects identified to suggest pulmonary emboli. CT CHEST: No thyroid nodule. Mildly prominent paratracheal and subcarinal lymph nodes are likely reactive. No pneumothorax. Trace right pleural effusion. Emphysema with bronchial wall thickening suggestive of bronchitis. Extensive dependent predominant segmental consolidation of the right lower lobe with additional patchy consolidative opacities of the left lower lobe and to lesser extent upper and right middle lobes. No overt pulmonary edema. No acute process of the imaged upper abdomen. Unremarkable soft tissues. No acute fracture. Motion degraded exam. IMPRESSION: 1. No pulmonary emboli. 2. Extensive bilateral segmental consolidative opacities, most pronounced within the dependent right greater than left lower lobes is compatible with multifocal pneumonia, possibly secondary to aspiration. 3. Emphysema. 4. Trace right pleural effusion. ACT 112: Negative or not required by law. The above report was generated using voice recognition software. It may contain grammatical, syntax or spelling errors. Electronically signed by: Johnny Parker M.D. 11/12/2020 2:38 PM Discharge Plan Visit Data Chief Complaint: Shortness of Breath/Dyspnea Stated Complaint: SOB ED Provider: Kumar Dow Discharge Problem: Acute respiratory failure, COPD (chronic obstructive pulmonary disease), Multifocal pneumonia Patient Disposition: Admitted As Inpatient Discharge Instructions Interventions: ED Discharge Assessment Last Done: 11/12/20 17:29 Discharge Problem: Acute respiratory failure Qualifiers: Respiratory failure complication: hypoxia and hypercapnia Qualified Code(s): J96.01 - Acute respiratory failure with hypoxia COPD (chronic obstructive pulmonary disease) Qualifiers: COPD type: unspecified COPD Qualified Code(s): J44.9 - Chronic obstructive pulmonary disease, unspecified
[2020-11-12] MEDS ORDERED: VANCOMYCIN CONSULT ACTIVE PRN (18:23)
[2020-11-12] MEDS ORDERED: ONDANSETRON INJ 2 MG/ML 2 ML VIAL IV PRN (18:23)
[2020-11-12] MEDS ORDERED: VANCOMYCIN HCL 1,000 MG in SODIUM CHLORIDE 0.9% 250 ML IV SCH (18:23)
[2020-11-12] MEDS ORDERED: DICYCLOMINE HCL 10 MG CAP PO PRN (18:23)
[2020-11-12] MEDS ORDERED: PIPERACILLIN/TAZOBACTAM 4.5 GM in DEXTROSE 5% 100 ML IV SCH (18:23)
[2020-11-12] MEDS ORDERED: SODIUM CHLORIDE 0.9% 1000ML 1,000 ML IV SCH (18:23)
[2020-11-12] MEDS ORDERED: VANCOMYCIN HCL 1,750 MG in SODIUM CHLORIDE 0.9% 500 ML IV SCH (19:00)
[2020-11-12] MEDS: PIPERACILLIN/TAZOBACTAM 3.375 GM in DEXTROSE 5% 100 ML IV SCH (19:33)
[2020-11-12] MEDS: methylPREDNISolone 40 MG in SYRINGE 0 ML IV SCH (20:02)
[2020-11-12] MEDS: METOPROLOL SUCC 25MG EXT REL TAB PO SCH (20:03)
[2020-11-12] MEDS: GABAPENTIN 600 MG TAB PO SCH (20:04)
[2020-11-12] MEDS: PANTOprazole 40 MG TAB PO SCH (20:04)
[2020-11-12] MEDS: ACETAMINOPHEN 500 MG TAB PO SCH (20:05)
[2020-11-12] MEDS: ATORVASTATIN 20 MG TAB PO SCH (20:05)
[2020-11-12] MEDS: lamoTRIgine 25 MG TAB PO SCH (20:06)
[2020-11-13] MEDS: methylPREDNISolone 40 MG in SYRINGE 0 ML IV SCH ×3 (01:54→15:58)
[2020-11-13] MEDS: PIPERACILLIN/TAZOBACTAM 3.375 GM in DEXTROSE 5% 100 ML IV SCH ×3 (03:53→19:34)
[2020-11-13] MEDS: LEVOTHYROXINE SODIUM 75 MCG TABLET PO SCH (05:39)
[2020-11-13] MEDS: lamoTRIgine 25 MG TAB PO SCH ×2 (05:39→17:07)
[2020-11-13] MEDS ORDERED: VANCOMYCIN HCL 1,250 MG in SODIUM CHLORIDE 0.9% 250 ML IV SCH (08:00)
[2020-11-13] MEDS: NICOTINE 14 MG/24 HR PATCH TD SCH (08:01)
[2020-11-13] MEDS: ENOXAPARIN INJ 40 MG/0.4 ML SYR SQ SCH (08:01)
[2020-11-13] MEDS: GABAPENTIN 600 MG TAB PO SCH ×3 (08:02→20:52)
[2020-11-13] MEDS: VENLAFAXINE HCL XR 150 MG CAPXR PO SCH (08:02)
[2020-11-13] MEDS: PANTOprazole 40 MG TAB PO SCH ×2 (08:03→17:07)
[2020-11-13] MEDS: ACETAMINOPHEN 500 MG TAB PO SCH ×3 (08:03→20:53)
[2020-11-13] MEDS: ASPIRIN 81 MG ECTAB PO SCH (08:03)
[2020-11-13] MEDS: CYANOCOBALAMIN 500 MCG TABLET (VITAMIN B-12) PO SCH (08:04)
[2020-11-13] MEDS: METOPROLOL SUCC 25MG EXT REL TAB PO SCH ×2 (08:08→20:51)
[2020-11-13] MEDS: dilTIAZem HCL 240 MG CAPCR PO SCH (08:09)
[2020-11-13] MEDS: UMECLIDINIUM/VILANTEROL 62.5/25MCG 7 PUFFS/INHALER INH SCH (08:09)
[2020-11-13 08:35] LABS: Hematocrit (blood only) 32.9 % (37-47); Hemoglobin 10.5 g/dL (12.0-16.0); Mean Corpuscular Hgb Conc 31.9 g/dL (32-36); Mean Corpuscular Volume 103.5 fL (80-100); Mean Platelet Volume 9.9 fL (7.4-10.4); Platelet Count 194 K/uL (130-400); RDW Coefficient of Variation 14.2 % (11.5-14.5); RDW Standard Deviation 53.6 fL (36.4-46.3); Red Blood Count 3.18 M/uL (4.2-5.4); White Blood Count 18.86 K/uL (4.8-10.8)
[2020-11-13 08:45] LABS: Basophils # (auto) 0.01 K/uL (0-0.2); Basophils % (auto) 0.1 %; Immature Granulocytes % (auto) 0.6 %; Lymphocytes # (auto) 0.42 K/uL (1.2-3.4); Lymphocytes % (auto) 2.2 %; Monocytes # (auto) 0.59 K/uL (0.11-0.59); Monocytes % (auto) 3.1 %; Neutrophils # (auto) 17.72 K/uL (1.4-6.5)
[2020-11-13 08:46] LABS: Immature Granulocytes # (auto) 0.12 K/uL (0.00-0.02)
[2020-11-13] MEDS ORDERED: IRON POLYSACCHARIDE COMPLEX 150 MG CAPSULE PO SCH (09:00)
[2020-11-13] MEDS ORDERED: NON-FORMULARY MEDICATION (Nicotine 14 mg/24 hr Patch 24 Hour) TD SCH (09:00)
[2020-11-13 09:09] LABS: BUN Creatinine Ratio 32.7 (10-20); Calcium 8.5 mg/dl (8.5-10.1); Creatinine Clr Calc Pharmacy 101.1 ml/min; Est GFR (African American) 118.9 ml/min; Est GFR (Non-African American) 102.6 ml/min; Magnesium 1.2 mg/dl (1.8-2.4); Potassium 3.5 mmol/L (3.5-5.1)
[2020-11-13] MEDS: IRON POLYSACCHARIDE COMPLEX 150 MG CAPSULE PO SCH (09:29)
[2020-11-13] MEDS: SENNA 8.6 MG TAB PO SCH (12:02)
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
--- NOTE | 2020-11-13 16:59 | Fluoroscopy Report ---
FL video swallow HISTORY: assess for aspiration TECHNIQUE: Video fluoroscopic evaluation of swallowing was performed in the AP and lateral projection s by the speech pathology staff. The patient is fed nectar-thick and thin liquid barium, a barium coa eliana wafer, and barium pudding. FLUOROSCOPY TIME: 3 minutes. NUMBER OF FLUOROSCOPY IMAGES: [id number] COMPARISON STUDY: None. FINDINGS: There is normal hyoid excursion and epiglottic deflection. No significant penetration or as piration identified. Swallowing function is within normal limits. IMPRESSION: 1. No aspiration identified. 2. Please see the speech pathologist report for detailed findings and recommendations. ACT 112: Negative or not required by law. The above report was generated using voice recognition software. It may contain grammatical, syntax o r spelling errors. Electronically signed by: Carissa Brennan DO 11/13/2020 4:55 PM
--- NOTE | 2020-11-13 17:28 | Hospitalist Progress Note ---
Date of Service November 13, 2020 Assessment & Plan (1) Acute respiratory failure: Plan: Due to likely aspiration pneumonia. - Continue O2 - Continue Zosyn (2) Multifocal pneumonia: Plan: Likely aspiration. - As above (3) Bacteremia: Plan: Blood culture from 11/12 growing Gram(-) bacilli. - Abx as above (4) Aspiration into lower respiratory tract: Plan: Patient sadly did very poorly with video swallow on 11/13. She aspirated her own saliva and thin liquids which improved with chin tuck. - PATIENT CARE COORDINATOR recs include: * Easy to chew diet, SLIPPERY (avoid dry, thick, pasty foods) * Aspiration precautions * Complete chin tuck with all liquids (take a small sip, hold in mouth, tuck chin, and then swallow with chin down) * Strict mouth care * GI and ENT consults (5) Zenker's diverticulum: Plan: Noted on video swallow on 11/13. - GI and ENT consult (6) COPD (chronic obstructive pulmonary disease): Plan: Patient was on a prednisone taper and is now on 20 mg p.o. daily. - Restart IV Solu-Medrol at 40 mg every 6 hours due to wheezing on admission. - Tapered to Solu-Medrol 40 mg IV daily by pulmonary - DuoNebs 4 times daily with as needed albuterol (7) Hypothyroid: Plan: No TSH in charts. - Continue levothyroxine 75 mcg daily - Check TSH (8) Hyperlipidemia: Plan: - Continue atorvastatin (9) GERD (gastroesophageal reflux disease): Plan: - Continue pantoprazole (10) DVT prophylaxis: Plan: Lovenox 40 mg SQ daily Admission and Anticipated Discharge Date Admission Date: November 12, 2020 Subjective Doing much better today. On 4L NC, but feeling less shortness of breath. Coughing with some mucus expectorated. Reports no fevers/chills, chest pain, abdominal pain, nausea, or vomiting. Physical Exam Constitutional: WD/WN, vitals as above Eyes: EOM intact bilaterally; no conjunctival abnormality ENMT: external ear and nose normal, oropharynx normal Neck: trachea midline, no thyromegaly normal visual inspection Respiratory: + labored breathing; no respiratory distress Auscultation: + rhonchi (Diffuse) and + wheezes Cardiovascular: RRR, no murmur, no edema Gastrointestinal (Abdomen): Inspection/Auscultation: abdomen normal to inspection; abdomen not distended Musculoskeletal: no cyanosis or clubbing, extremities motor strength 5/5 Skin: no rashes, warm and dry Neurologic: moves all extremities and awake Psychiatric: Orientation: alert, oriented to person and cooperative Results & Data Results & Data ([facility]) Vital Signs (Past 12 Hours) Vital Signs Temp Pulse Resp BP Pulse Ox Pulse Ox Pulse Ox 11/13/20 16:11 36.8 C 88 18 115/74 91 11/13/20 11:22 94 94 11/13/20 10:33 36.7 C 93 H 18 106/69 91 11/13/20 07:11 36.5 C 80 17 106/71 94 11/13/20 06:00 94 Pulse Ox 11/13/20 16:11 11/13/20 11:22 86 L 11/13/20 10:33 11/13/20 07:11 11/13/20 06:00 PG Care Time/CCT Total # of Minutes Spent Total Time Spent with Patient: Total time spent is greater than 50% in coordination of care (as documented) at patient's floor/unit and/or counseling patient: Coding Level of Care Code 60113 Subseq Hosp Care Lvl 3 Diagnoses Acute respiratory failure J96.01; J96.02 Respiratory failure complication: hypoxia and hypercapnia COPD (chronic obstructive pulmonary disease) J44.9 COPD type: unspecified COPD Multifocal pneumonia J18.9 Hypothyroid E03.9 Hyperlipidemia E78.5 GERD (gastroesophageal reflux disease) K21.9 Bacteremia R78.81 Aspiration into lower respiratory tract T17.800A Zenker's diverticulum K22.5 DVT prophylaxis Z29.9 (1) Acute respiratory failure Respiratory failure complication: hypoxia and hypercapnia Qualified Code(s): J96.01 - Acute respiratory failure with hypoxia; J96.02 - Acute respiratory failure with hypercapnia (2) COPD (chronic obstructive pulmonary disease) COPD type: unspecified COPD Qualified Code(s): J44.9 - Chronic obstructive pulmonary disease, unspecified
[2020-11-13] MEDS: MAGNESIUM SULFATE / D5W 1 GM/100 ML BAG IV SCH ×3 (18:26→21:22)
[2020-11-13] MEDS: ATORVASTATIN 20 MG TAB PO SCH (20:52)
[2020-11-13] MEDS: guaiFENesin 600 MG TABCR PO SCH (20:54)
[2020-11-14] MEDS: PIPERACILLIN/TAZOBACTAM 3.375 GM in DEXTROSE 5% 100 ML IV SCH ×3 (01:55→18:10)
[2020-11-14] MEDS: lamoTRIgine 25 MG TAB PO SCH ×2 (06:01→18:02)
[2020-11-14] MEDS: LEVOTHYROXINE SODIUM 75 MCG TABLET PO SCH (06:02)
[2020-11-14] MEDS ORDERED: VANCOMYCIN TROUGH ONE (07:30)
[2020-11-14 07:37] LABS: Hematocrit (blood only) 30.3 % (37-47); Hemoglobin 9.8 g/dL (12.0-16.0); Mean Corpuscular Hemoglobin 33.1 pg (25-34); Mean Corpuscular Hgb Conc 32.3 g/dL (32-36); Mean Corpuscular Volume 102.4 fL (80-100); Mean Platelet Volume 9.9 fL (7.4-10.4); Platelet Count 208 K/uL (130-400); RDW Coefficient of Variation 14.2 % (11.5-14.5); RDW Standard Deviation 52.8 fL (36.4-46.3); Red Blood Count 2.96 M/uL (4.2-5.4); White Blood Count 20.63 K/uL (4.8-10.8)
[2020-11-14 08:07] LABS: Calcium 8.8 mg/dl (8.5-10.1); Creatinine Clr Calc Pharmacy 108.3 ml/min; Est GFR (African American) 121.9 ml/min; Est GFR (Non-African American) 105.2 ml/min; Magnesium 1.9 mg/dl (1.8-2.4); Potassium 3.2 mmol/L (3.5-5.1)
[2020-11-14 08:18] LABS: Thyroid Stimulating Hormone 1.2 uIu/ml (0.300-4.500)
[2020-11-14] MEDS: ASPIRIN 81 MG ECTAB PO SCH (08:53)
[2020-11-14] MEDS: dilTIAZem HCL 240 MG CAPCR PO SCH (08:53)
[2020-11-14] MEDS: IRON POLYSACCHARIDE COMPLEX 150 MG CAPSULE PO SCH (08:53)
[2020-11-14] MEDS: PANTOprazole 40 MG TAB PO SCH ×2 (08:53→18:02)
[2020-11-14] MEDS: CYANOCOBALAMIN 500 MCG TABLET (VITAMIN B-12) PO SCH (08:53)
[2020-11-14] MEDS: NICOTINE 14 MG/24 HR PATCH TD SCH (08:54)
[2020-11-14] MEDS: VENLAFAXINE HCL XR 150 MG CAPXR PO SCH (08:54)
[2020-11-14] MEDS: ENOXAPARIN INJ 40 MG/0.4 ML SYR SQ SCH (08:54)
[2020-11-14] MEDS: METOPROLOL SUCC 25MG EXT REL TAB PO SCH ×2 (08:54→20:56)
[2020-11-14] MEDS: UMECLIDINIUM/VILANTEROL 62.5/25MCG 7 PUFFS/INHALER INH SCH (08:55)
[2020-11-14] MEDS: ACETAMINOPHEN 500 MG TAB PO SCH ×3 (08:55→20:57)
[2020-11-14] MEDS: guaiFENesin 600 MG TABCR PO SCH ×2 (08:55→20:58)
[2020-11-14] MEDS: GABAPENTIN 600 MG TAB PO SCH ×3 (08:55→20:57)
[2020-11-14] MEDS ORDERED: methylPREDNISolone 40 MG in SYRINGE 0 ML IV SCH (09:00)
[2020-11-14] MEDS: POTASSIUM CHLORIDE CRTAB 20 MEQ TABCR PO SCH ×2 (10:01→20:56)
[2020-11-14] MEDS: SENNA 8.6 MG TAB PO SCH (11:26)
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
--- NOTE | 2020-11-14 12:19 | Pulmonology Progress Note ---
Date of Service November 14, 2020 Assessment & Plan (1) COPD (chronic obstructive pulmonary disease): COPD type: unspecified COPD Qualified Code(s): J44.9 - Chronic obstructive pulmonary disease, unspecified (2) Multifocal pneumonia: (3) Current smoker: (4) Acute and chronic respiratory failure with hypoxia: Plan: CT chest 11/12/2020 personally reviewed: Centrilobular and paraseptal emphysema, bilateral consolidative process is appreciated especially in the right lower lobe, left lower lobe Linear atelectasis of lateral aspect of right middle lobe Mediastinal adenopathy likely reactive --Acute on chronic hypoxic respiratory failure Secondary to multilobar pneumonia with gram-negative bacteremia COVID-19 PCR negative Procalcitonin 7.7, Nasal MRSA negative C. difficile negative Follow sputum culture Continue with O2 supplementation to keep oxygen saturation between 88-92% --COPD with emphysema I do not think patient is in acute exacerbation Continue with Anoro Patient will benefit from pulmonary follow-up as outpatient PFTs as an outpatient --Current smoker Advised to quit Plan: Follow-up mycoplasma IgM as well as urine Legionella DC Solu-Medrol Continue with incentive spirometry and flutter valve Chest x-ray in the morning. Please note the above document was generated using voice recognition software. It may contain grammatical, syntax or spelling errors.Any formal questions or concerns about the content, text or information contained within the body of this dictation should be directly addressed to the provider for clarification. Admission and Anticipated Discharge Date Admission Date: November 12, 2020 Subjective Patient seen and examined at bedside. No acute distress, no adverse events overnight. Says that she is doing well. Breathing is improved. Has been using flutter valve as well as incentive spirometry Able to bring up phlegm. No hemoptysis. No headache. Fair appetite. Patient did have central line placed when she was at the previous hospital. As per the patient was removed a week ago. The gram-negative bacteremia could be a line infection as well from the line. Review of Systems Review of Systems: All systems reviewed & are unremarkable except as noted in Subjective Physical Exam Physical Exam: Constitutional: No acute distress HEENT: EOMI, PERRLA Respiratory system: Decreased air entry bilaterally, no wheeze, no rhonchi, positive crackles bilateral lower lobes CVS: S1-S2 positive, no murmurs or gallops Abdomen: Soft, nontender, nondistended, positive bowel sounds x4 Extremities: +2 pulses bilaterally radialis/ dorsalis pedis, no cyanosis, no edema Neuro: Awake alert oriented x3 Psych: Normal mood and affect G/U: Positive Causey Skin: no rashes, warm and dry Lymphatic: no cervical or axillary lymphadenopathy Results & Data Results & Data ([facility]) Vital Signs (Past 12 Hours) Vital Signs Temp Pulse Pulse Resp BP Pulse Ox 11/14/20 11:06 36.5 C 89 19 107/67 91 11/14/20 07:17 36.9 C 81 18 113/72 93 11/14/20 07:11 83 11/14/20 04:11 36.5 C 78 18 112/69 92 11/14/20 07:13 11/14/20 07:13 PG Care Time/CCT Total # of Minutes Spent Total Time Spent with Patient: Total time spent is greater than 50% in coordination of care (as documented) at patient's floor/unit and/or counseling patient: Coding [place] [address] Subseq Hosp Care Lvl 3 Patient Type Established Diagnoses COPD (chronic obstructive pulmonary disease) J44.9 COPD type: unspecified COPD Multifocal pneumonia J18.9 Current smoker F17.200 Acute and chronic respiratory failure with hypoxia J96.21
--- NOTE | 2020-11-14 14:29 | Hospitalist Progress Note ---
Date of Service November 14, 2020 Assessment & Plan (1) Acute respiratory failure: Plan: Due to likely aspiration pneumonia. - Continue O2 - Continue Zosyn (2) Multifocal pneumonia: Plan: Likely aspiration. - As above (3) Bacteremia: Plan: Blood culture from 11/12 growing Gram(-) bacilli. May be due to pneumonia, but the patient also had a central line that was only removed about 1 week prior, so could be from that as well. - Abx as above (4) Aspiration into lower respiratory tract: Plan: Patient sadly did very poorly with video swallow on 11/13. She aspirated her own saliva and thin liquids which improved with chin tuck. - MAPPING ANALYST recs include: * Easy to chew diet, SLIPPERY (avoid dry, thick, pasty foods) * Aspiration precautions * Complete chin tuck with all liquids (take a small sip, hold in mouth, tuck chin, and then swallow with chin down) * Strict mouth care * GI and ENT consults -> Discussed with GI. No plan for emergent EGD here for the possible diverticulum. Radiology also feel that this might not be diverticulum. Will follow up outpatient with [facility]. (5) Zenker's diverticulum: Plan: Noted on video swallow on 11/13. - GI and ENT consult as above (6) COPD (chronic obstructive pulmonary disease): Plan: Patient was on a prednisone taper and is now on 20 mg p.o. daily. - Restart IV Solu-Medrol at 40 mg every 6 hours due to wheezing on admission. - Tapered to Solu-Medrol 40 mg IV daily by pulmonary - DuoNebs 4 times daily with as needed albuterol (7) Hypothyroid: Plan: TSH was 1.2 this admission. - Continue levothyroxine 75 mcg daily (8) Hyperlipidemia: Plan: - Continue atorvastatin (9) GERD (gastroesophageal reflux disease): Plan: - Continue pantoprazole PO BID (10) DVT prophylaxis: Plan: Lovenox 40 mg SQ daily Admission and Anticipated Discharge Date Admission Date: November 12, 2020 Subjective Doing better today. Breathing is definitely easier today. Coughing up productive sputum. Reports no fevers/chills, chest pain, abdominal pain, nausea, or vomiting. Physical Exam Constitutional: WD/WN, vitals as above Eyes: EOM intact bilaterally; no conjunctival abnormality ENMT: external ear and nose normal, oropharynx normal Neck: trachea midline, no thyromegaly normal visual inspection Respiratory: + labored breathing; no respiratory distress Auscultation: + rhonchi (Diffuse, but improving) Cardiovascular: RRR, no murmur, no edema Gastrointestinal (Abdomen): Inspection/Auscultation: abdomen normal to inspection; abdomen not distended Musculoskeletal: no cyanosis or clubbing, extremities motor strength 5/5 Skin: no rashes, warm and dry Neurologic: moves all extremities and awake Psychiatric: Orientation: alert, oriented to person and cooperative Results & Data Results & Data ([facility]) Vital Signs (Past 12 Hours) Vital Signs Temp Pulse Pulse Resp BP Pulse Ox 11/14/20 11:06 36.5 C 89 19 107/67 91 11/14/20 07:17 36.9 C 81 18 113/72 93 11/14/20 07:11 83 11/14/20 04:11 36.5 C 78 18 112/69 92 PG Care Time/CCT Total # of Minutes Spent Total Time Spent with Patient: Total time spent is greater than 50% in coordination of care (as documented) at patient's floor/unit and/or counseling patient: Coding Level of Care Code 49730 Subseq Hosp Care Lvl 2 Diagnoses Acute respiratory failure J96.01; J96.02 Respiratory failure complication: hypoxia and hypercapnia Multifocal pneumonia J18.9 Bacteremia R78.81 Aspiration into lower respiratory tract T17.800A Zenker's diverticulum K22.5 COPD (chronic obstructive pulmonary disease) J44.9 COPD type: unspecified COPD Hypothyroid E03.9 Hyperlipidemia E78.5 GERD (gastroesophageal reflux disease) K21.9 DVT prophylaxis Z29.9 (1) Acute respiratory failure Respiratory failure complication: hypoxia and hypercapnia Qualified Code(s): J96.01 - Acute respiratory failure with hypoxia; J96.02 - Acute respiratory failure with hypercapnia (2) COPD (chronic obstructive pulmonary disease) COPD type: unspecified COPD Qualified Code(s): J44.9 - Chronic obstructive pulmonary disease, unspecified
--- NOTE | 2020-11-14 17:32 | ENT Consultation ---
Date of Consultation November 14, 2020 Assessment & Plan (1) Dysphagia: (2) Zenker's diverticulum: (3) Vocal process granuloma: 60yF h/o COPD on home O2 and recent hospitalization for respiratory failure requiring intubation now admitted with aspiration pneumonia and bacteremia. MBS 11/13/20 showed silent aspiration on multiple consistencies and saliva, as well as a Zenker's diverticulum vs. CP bar. FFL with L vocal process granuloma, which likely explains her dysphonia, and normal TVF mobility bilaterally. Dysphagia is likely multifactorial and primarily related to deconditioning from her recent hospitalization. -Abx per primary team -Diet per PEOPLESOFT FINANCIAL DEVELOPER -Aggressive oral care -Ongoing swallowing therapy -Recommend PPI given Zenker's/CP bar and vocal process granuloma -May benefit from Zenker's repair or CP myotomy on an outpatient elective basis if aspiration becomes recurrent -Discussed that the majority of vocal process granulomas typically resolve with time, speech therapy, and reflux control. Recommend follow up with ENT (pt prefers local ENT) in 2-3 months to ensure resolution History of Present Illness Reason for Consultation: aspiration Attending Physician: Jh Soares MD History of Present Illness 60yF h/o COPD on home O2 admitted with multifocal PNA and bacteremia found to have silent aspiration on MBS. Pt reports a recent hospitalization for respiratory failure after chemical exposure requiring intubation. She was discharged and now is admitted for PNA. Report longstanding dysphonia which worsened after intubation. Some dysphagia as well. Rare heartburn. No throat pain, otalgia, unexplained weight loss. Current 1ppd smoker. 1 episode of PNA last year. No prior neck/chest/throat surgeries. No regurgitation of food. MBS 11/13/20 with silent aspiration with thins, nectar thick, and saliva. Improved with chin tuck with penetration but no aspiration. Mod oropharyngeal dysphagia, mild vallecular residue. +Zenker's vs. CP bar Allergies Allergy/AdvReac Type Severity Reaction Status Date / Time solifenacin Allergy Unknown Unverified 11/12/20 13:12 Home Medications Medication Instructions Recorded Confirmed Type acetaminophen 500 mg tablet 1,000 mg PO TID 11/12/20 11/12/20 History albuterol sulfate 90 mcg/actuation 2 puff INHALATION Q4H PRN 11/12/20 11/12/20 History aerosol inhaler aspirin 81 mg tablet,delayed 81 mg PO DAILY 11/12/20 11/12/20 History release atorvastatin 20 mg tablet 20 mg PO HS 11/12/20 11/12/20 History cyanocobalamin (vitamin B-12) 1,000 mcg PO DAILY 11/12/20 11/12/20 History 1,000 mcg tablet (Vitamin B-12) dicyclomine 10 mg capsule 10 mg PO TID PRN 11/12/20 11/12/20 History diltiazem HCl 240 mg capsule,24 240 mg PO DAILY 11/12/20 11/12/20 History hr,extended release enoxaparin 40 mg/0.4 mL 40 mg SUBCUT DAILY 11/12/20 11/12/20 History subcutaneous syringe ergocalciferol (vitamin D2) 1,250 1,250 mcg PO WK 11/12/20 11/12/20 History mcg (50,000 unit) capsule (Vitamin D2) gabapentin 800 mg tablet 1,200 mg PO TID 11/12/20 11/12/20 History ibuprofen 800 mg tablet 800 mg PO TID PRN 11/12/20 11/12/20 History ipratropium 0.5 mg-albuterol 3 mg 3 ml INHALATION Q4H PRN 11/12/20 11/12/20 History (2.5 mg base)/3 mL nebulization soln iron polysaccharide complex-iron 1 tab PO DAILY 11/12/20 11/12/20 History heme polypeptide 28 mg tablet lamotrigine 25 mg tablet (Lamictal) 50 mg PO Q12H 11/12/20 11/12/20 History levothyroxine 75 mcg tablet 75 mcg PO DAILY 11/12/20 11/12/20 History metoprolol succinate 25 mg 25 mg PO BID 11/12/20 11/12/20 History tablet,extended release 24 hr nicotine 14 mg/24 hr daily 1 patch TRANSDERMAL DAILY 11/12/20 11/12/20 History transdermal patch pantoprazole 20 mg tablet,delayed 20 mg PO BIDM 11/12/20 11/12/20 History release prednisone 20 mg tablet 20 mg PO DAILY 11/12/20 11/12/20 History sennosides 8.6 mg tablet (Senokot) 8.6 mg PO QDL 11/12/20 11/12/20 History umeclidinium 62.5 mcg-vilanterol 1 inh INHALATION DAILY 11/12/20 11/12/20 History 25 mcg/actuation powdr for inhalation (Anoro Ellipta) venlafaxine 150 mg 150 mg PO DAILY 11/12/20 11/12/20 History capsule,extended release 24 hr Patient History Social History Smoking Status: Former smoker Hx Alcohol Use: Yes Hx Substance Use: No Preferred Language: Bulgarian Communication Ability: Effective Air Export Agent Required: No Beliefs That Will Affect Care: None Current Living Situation: Family Feels Safe at Home: Yes Assistive Devices: Walker Review of Systems Review of Systems: A 10-point ROS is negative except as noted above Physical Exam Physical Exam: General: The patient is well-developed, well-nourished, and in no acute distress. Mildly dyspneic on 4L O2 via [place] Head and Face: Skull: No obvious deformities Sinus tenderness: There is no tenderness to palpation of the sinuses. Salivary glands: The parotid and submandibular glands are normal in appearance and there are no masses on palpation. Facial strength: Facial motion is symmetric and without weakness. Eyes: Eyelids: There is no periorbital edema. Conjunctiva: There is no conjunctival erythema. Pupils: The pupils are equal, round, and reactive to light. Extraocular muscles: Extraocular movement is normal. Nystagmus: There is no nystagmus. Ears: Right auricle: The pinna is normally formed without skin lesion or mass. Left auricle: The pinna is normally formed without skin lesion or mass. Hearing: Clinical speech operator receptionist threshold testing is grossly normal. Nose: External: There is no gross external deformity, tenderness, or skin lesion or mass. Mucosa: There is no nasal mucosal edema, inflammation, lesion, or mass. Septum: The nasal septum is deviated to the left Nasal cavity: There is no inferior turbinate hypertrophy, edema, inflammation, or mass bilaterally. The inferior meatus and middle meatus were clear bilaterally without mass, lesion, mucopurulence, or polyposis. Oral cavity/Oropharynx: Lips: There are no lip lesions or masses. Oral cavity: There is no inflammation, lesion, or mass involving the gums, gingiva, floor of mouth, buccal mucosa, retromolar trigone, hard palate, soft palate, tongue. Dentition is moderate to poor Oropharynx: There is no inflammation, lesion, or mass involving the palatine tonsils or posterior pharyngeal wall. tonsils absent Neck: General: There are no visible scars or lesions involving the neck. There are no visible or palpable masses involving the neck. The trachea is midline. Lymph nodes: There is no visible or palpable neck lymphadenopathy. Thyroid: There is no visible or palpable thyroid enlargement or nodularity. Respiratory/Pulmonary: There is no stertor or stridor. There is normal respiratory effort without acute distress. Cardiovascular: There is no visible extremity edema. Skin: There are no visible lesions or masses involving the skin of the head and neck region. Neurological: Cranial nerves: Cranial nerve II is noted to be intact by grossly normal visual acuity. Cranial nerves III, IV, and are noted to be intact by normal extraocular movements. Cranial nerve VII is noted to be intact by symmetric and normal facial movement. Cranial nerve VIII is noted to be intact by a relatively normal clinical speech operator receptionist threshold. Cranial nerve IX is noted to be intact by an intact gag reflex and normal palatal movement. Cranial nerve X is noted to be intact by a normal voice. Cranial nerve XI is noted to be intact by normal shoulder and head movement. Cranial nerve XII is noted to be intact by normal symmetric tongue movement. Vestibular system: There is no spontaneous or gaze evoked nystagmus. Psychiatric: Mental status: The patient is awake and alert. Mood/affect: The patient has a normal mood and affect. Raspy voice, no breathiness Procedure: Flexible fiberoptic laryngoscopy Indication: dysphagia, dysphonia Details: Following the topical application of afrin and lidocaine, the flexible laryngoscope was inserted into the nasal cavity. The septum, turbinates, and nasal mucosa were as described above. The nasopharynx was normal. The base of tongue and vallecula were normal. The epiglottis, bilateral arytenoids, and bilateral aryepiglottic folds, and bilateral false vocal folds were normal. There was a small vocal process granuloma on the left true vocal fold posterioly. There was normal mobility of the true vocal folds bilaterally. The supraglottis was sensate. The bilateral pyriform sinuses and postcricoid space was normal. There was no pooling of secretions. No aspiration or penetration was visualized. The patient tolerated the procedure well. Results & Data ([facility]) Vital Signs (Past 12 Hours) Vital Signs Temp Pulse Pulse Resp BP Pulse Ox 08/05/21 15:38 37.2 C 87 18 125/67 91 11/14/20 14:50 81 11/14/20 11:06 36.5 C 89 19 107/67 91 11/14/20 07:17 36.9 C 81 18 113/72 93 11/14/20 07:11 83 PG Care Time/CCT Total # of Minutes Spent Total Time Spent with Patient: Total time spent is greater than 50% in coordination of care (as documented) at patient's floor/unit and/or counseling patient: Coding Level of Care Code 20086 Inpt Consult Level 4 (25 - SIGNIFICANT, SEPARATELY IDENTIFIABLE ) Diagnoses Dysphagia R13.10 Zenker's diverticulum K22.5 Vocal process granuloma J38.3 CPT Codes LARYNGOSCOPY DIAGNOSTIC FLEXIBLE - 63416 ([id number])
[2020-11-14] MEDS: ATORVASTATIN 20 MG TAB PO SCH (20:57)
[2020-11-15] MEDS: PIPERACILLIN/TAZOBACTAM 3.375 GM in DEXTROSE 5% 100 ML IV SCH ×2 (02:46→11:33)
--- NOTE | 2020-11-15 05:57 | Electrocardiogram Report ---
Test Reason : Blood Pressure : / mmHG Vent. Rate : 122 BPM Atrial Rate : 122 BPM P-R Int : 134 ms QRS Dur : 080 ms QT Int : 292 ms P-R-T Axes : 072 047 148 degrees QTc Int : 416 ms Sinus tachycardia Nonspecific ST and T wave abnormality Abnormal ECG No previous ECGs available Confirmed by Lauro Hernández ([id number]) on 11/15/2020 5:56:48 AM Referred By: REFERRED SELF Confirmed By:Lauro Hernández
[2020-11-15] MEDS: LEVOTHYROXINE SODIUM 75 MCG TABLET PO SCH (06:35)
[2020-11-15] MEDS: lamoTRIgine 25 MG TAB PO SCH ×2 (06:35→17:44)
--- NOTE | 2020-11-15 07:41 | XRay Report ---
XR chest 1V portable HISTORY: 60 years-old Female f/u acute shortness of breath COMPARISON: Chest radiograph and CTA chest 11/12/2020 TECHNIQUE: Portable AP view of the chest FINDINGS: Cardiac silhouette is upper limits of normal in size. No pneumothorax or large pleural effusion. Righ t greater left bibasilar consolidation. Emphysema with chronic appearing interstitial coarsening. Pat damien airspace opacities of the mid lung zones and left upper lung redemonstrated. There is no signific ant change from comparison. Bones appear grossly intact. Surgical anchor of the left humeral head. IMPRESSION: 1. Right greater than left bilateral airspace opacities, most pronounced within the lung bases appear stable from comparison suggestive of multifocal pneumonia. 2. Emphysema. ACT 112: Negative or not required by law. The above report was generated using voice recognition software. It may contain grammatical, syntax o r spelling errors. Electronically signed by: Johnny Parker M.D. 11/15/2020 7:39 AM
[2020-11-15 07:42] LABS: Hemoglobin 10.9 g/dL (12.0-16.0); Mean Corpuscular Hemoglobin 32.9 pg (25-34); Mean Corpuscular Hgb Conc 32.1 g/dL (32-36); Mean Corpuscular Volume 102.7 fL (80-100); Mean Platelet Volume 9.9 fL (7.4-10.4); Platelet Count 241 K/uL (130-400); RDW Coefficient of Variation 14.1 % (11.5-14.5); RDW Standard Deviation 52.6 fL (36.4-46.3); Red Blood Count 3.31 M/uL (4.2-5.4); White Blood Count 17.03 K/uL (4.8-10.8)
[2020-11-15] MEDS: NICOTINE 14 MG/24 HR PATCH TD SCH (08:01)
[2020-11-15] MEDS: GABAPENTIN 600 MG TAB PO SCH ×3 (08:02→20:05)
[2020-11-15] MEDS: ACETAMINOPHEN 500 MG TAB PO SCH ×3 (08:02→20:05)
[2020-11-15] MEDS: SACCHAROMYCES BOULARDII 250 MG CAP PO SCH (08:02)
[2020-11-15] MEDS: guaiFENesin 600 MG TABCR PO SCH ×2 (08:02→20:06)
[2020-11-15] MEDS: METOPROLOL SUCC 25MG EXT REL TAB PO SCH ×2 (08:02→20:06)
[2020-11-15] MEDS: CYANOCOBALAMIN 500 MCG TABLET (VITAMIN B-12) PO SCH (08:02)
[2020-11-15] MEDS: IRON POLYSACCHARIDE COMPLEX 150 MG CAPSULE PO SCH (08:03)
[2020-11-15] MEDS: VENLAFAXINE HCL XR 150 MG CAPXR PO SCH (08:03)
[2020-11-15] MEDS: ERGOCALCIFEROL 50,000 UNITS 1250 MCG CAP PO SCH (08:03)
[2020-11-15] MEDS: ENOXAPARIN INJ 40 MG/0.4 ML SYR SQ SCH (08:03)
[2020-11-15] MEDS: dilTIAZem HCL 240 MG CAPCR PO SCH (08:03)
[2020-11-15] MEDS: PANTOprazole 40 MG TAB PO SCH ×2 (08:03→17:44)
[2020-11-15] MEDS: ASPIRIN 81 MG ECTAB PO SCH (08:03)
[2020-11-15] MEDS: UMECLIDINIUM/VILANTEROL 62.5/25MCG 7 PUFFS/INHALER INH SCH (08:03)
[2020-11-15 08:18] LABS: Calcium 9.2 mg/dl (8.5-10.1); Est GFR (African American) 116.8 ml/min; Est GFR (Non-African American) 100.8 ml/min; Magnesium 1.4 mg/dl (1.8-2.4); Potassium 3.9 mmol/L (3.5-5.1)
--- NOTE | 2020-11-15 10:07 | Palliative Care Consultation ---
Date of Consultation November 15, 2020 Assessment & Plan (1) Dysphagia: To be further evaluated as an outpatient. Her hope is to return to rehab facility nearer her home and she will see her regular doctors for f/u. She continues to use chin tuck and diet modifications. (2) Palliative care encounter: Suzette has had many challenges recently with chronic back pain and respiratory failure. She repeatedly talks about it not being fair to have all these challenges. We talked about how she is coping. She tells me that she does use marijuana for pain and to relieve anxiety and I recommended that she discuss medical marijuana with her primary physician. She gets a lot of support from her sister, Savannah, and also from her daughter who lives with her. We talked about her goals of care and whether her recent intubation had affected her goals. She tells me that she was glad that her sister opted for intubation and vent support, even though her daughter didn't think that she would want that. She tells me that she's been on the ventilator before and gotten over it and would want to do that again. She would not, however, want start up specialist vent support on continued treatment if she were not likely to recover. She would want her sister, Savannah Reynoso, to be her surrogate decision maker if she were unable to make her own decisions. (3) Zenker's diverticulum: (4) Bacteremia: (5) Acute and chronic respiratory failure with hypoxia: (6) Multifocal pneumonia: (7) COPD (chronic obstructive pulmonary disease): COPD type: unspecified COPD Qualified Code(s): J44.9 - Chronic obstructive pulmonary disease, unspecified History of Present Illness Reason for Consultation: goals of care Requesting Physician: Dr. Soares Attending Physician: Jh Soares MD History of Present Illness 60 yo lady with history of COPD who had exacerbation with irritant exposure in October. She was admitted to [facility] near her home and was intubated for two weeks per records. There is also note of concern for tracheomalacia in her record. She was subsequently transferred to [facility] for rehab and later to [facility] after she developed shortness of breath. She is found to have multifocal pneumonia and gram negative bacteremia. She was evaluated by speech therapy for dysphagia and found to have silent aspiration. She was seen by GI and ENT for evaluation with Zenker's diverticulum and cricopharyngeal bar but in general her dysphagia is thought to be at least partially related to generalized weakness from her illness. She has aspiration with saliva. She has been trying to use chin tuck and diet modifications to minimize risk. Allergies Allergy/AdvReac Type Severity Reaction Status Date / Time solifenacin Allergy Unknown Unverified 11/12/20 13:12 Home Medications Medication Instructions Recorded Confirmed Type acetaminophen 500 mg tablet 1,000 mg PO TID 11/12/20 11/12/20 History albuterol sulfate 90 mcg/actuation 2 puff INHALATION Q4H PRN 11/12/20 11/12/20 History aerosol inhaler aspirin 81 mg tablet,delayed 81 mg PO DAILY 11/12/20 11/12/20 History release atorvastatin 20 mg tablet 20 mg PO HS 11/12/20 11/12/20 History cyanocobalamin (vitamin B-12) 1,000 mcg PO DAILY 11/12/20 11/12/20 History 1,000 mcg tablet (Vitamin B-12) dicyclomine 10 mg capsule 10 mg PO TID PRN 11/12/20 11/12/20 History diltiazem HCl 240 mg capsule,24 240 mg PO DAILY 11/12/20 11/12/20 History hr,extended release enoxaparin 40 mg/0.4 mL 40 mg SUBCUT DAILY 11/12/20 11/12/20 History subcutaneous syringe ergocalciferol (vitamin D2) 1,250 1,250 mcg PO WK 11/12/20 11/12/20 History mcg (50,000 unit) capsule (Vitamin D2) gabapentin 800 mg tablet 1,200 mg PO TID 11/12/20 11/12/20 History ibuprofen 800 mg tablet 800 mg PO TID PRN 11/12/20 11/12/20 History ipratropium 0.5 mg-albuterol 3 mg 3 ml INHALATION Q4H PRN 11/12/20 11/12/20 History (2.5 mg base)/3 mL nebulization soln iron polysaccharide complex-iron 1 tab PO DAILY 11/12/20 11/12/20 History heme polypeptide 28 mg tablet lamotrigine 25 mg tablet (Lamictal) 50 mg PO Q12H 11/12/20 11/12/20 History levothyroxine 75 mcg tablet 75 mcg PO DAILY 11/12/20 11/12/20 History metoprolol succinate 25 mg 25 mg PO BID 11/12/20 11/12/20 History tablet,extended release 24 hr nicotine 14 mg/24 hr daily 1 patch TRANSDERMAL DAILY 11/12/20 11/12/20 History transdermal patch pantoprazole 20 mg tablet,delayed 20 mg PO BIDM 11/12/20 11/12/20 History release prednisone 20 mg tablet 20 mg PO DAILY 11/12/20 11/12/20 History sennosides 8.6 mg tablet (Senokot) 8.6 mg PO QDL 11/12/20 11/12/20 History umeclidinium 62.5 mcg-vilanterol 1 inh INHALATION DAILY 11/12/20 11/12/20 History 25 mcg/actuation powdr for inhalation (Anoro Ellipta) venlafaxine 150 mg 150 mg PO DAILY 11/12/20 11/12/20 History capsule,extended release 24 hr Patient History Social History Smoking Status: Former smoker Hx Alcohol Use: Yes Hx Substance Use: No Preferred Language: Micronesian Communication Ability: Effective Cathead Worker Required: No Beliefs That Will Affect Care: None Current Living Situation: Family Feels Safe at Home: Yes Assistive Devices: Walker Review of Systems Review of Systems: [place] Symptom Assessment Scale Pain 2/3 Anxiety 2/3 Fatigue 2/3 Nausea 0/3 Dyspnea 0/3 Drowsiness 0/3 Palliative Performance Score 40% Musculoskeletal: chronic back pain Physical Exam Constitutional: no acute distress Respiratory: normal respiratory effort; no labored breathing Cardiovascular: Rate/Rhythm: regular rate and regular rhythm Gastrointestinal (Abdomen): Inspection/Auscultation: abdomen not distended Neurologic: awake; not confused Psychiatric: Orientation: oriented x 3 Affect: + anxious affect Mood: + depressed mood Results & Data ([facility]) Vital Signs (Past 12 Hours) Vital Signs Temp Pulse Pulse Resp BP Pulse Ox 11/15/20 07:39 93 11/15/20 07:05 97.9 F 86 18 134/84 88 L 11/15/20 03:46 98.4 F 87 18 113/75 93 11/14/20 23:48 98.4 F 83 18 148/84 H 96 11/14/20 22:53 78 PG Care Time/CCT Total # of Minutes Spent Total Time Spent: 70 Total Time Spent with Patient: Total time spent is greater than 50% in coordi nation of care (as documented) at patient's floor/unit and/or counseling patient:symptom management, goals of care, code status, surrogate decision maker Coding Level of Care Code 37542 Initial Inpt Care Lvl 3 Diagnoses Dysphagia R13.10 Palliative care encounter Z51.5 Zenker's diverticulum K22.5 Bacteremia R78.81 Acute and chronic respiratory failure with hypoxia J96.21 Multifocal pneumonia J18.9 COPD (chronic obstructive pulmonary disease) J44.9 COPD type: unspecified COPD
[2020-11-15] MEDS: ACETYLCYSTEINE 20% INHAL SOLN 4ML ***DISPENSED BY RESP. INH SCH ×2 (11:10→19:06)
[2020-11-15] MEDS: ALBUT/IPRATROP 3MG/0.5MG NEB 3 ML VIAL INH PRN ×2 (11:10→19:06)
--- NOTE | 2020-11-15 11:15 | Pulmonology Progress Note ---
Date of Service November 15, 2020 Assessment & Plan (1) COPD (chronic obstructive pulmonary disease): COPD type: unspecified COPD Qualified Code(s): J44.9 - Chronic obstructive pulmonary disease, unspecified (2) Multifocal pneumonia: (3) Current smoker: (4) Acute and chronic respiratory failure with hypoxia: Plan: CT chest 11/12/2020 personally reviewed: Centrilobular and paraseptal emphysema, bilateral consolidative process is appreciated especially in the right lower lobe, left lower lobe Linear atelectasis of lateral aspect of right middle lobe Mediastinal adenopathy likely reactive --Acute on chronic hypoxic respiratory failure Secondary to multilobar pneumonia with gram-negative bacteremia COVID-19 PCR negative Procalcitonin 7.7, Nasal MRSA negative C. difficile negative Follow sputum culture Continue with O2 supplementation to keep oxygen saturation between 88-92% --COPD with emphysema I do not think patient is in acute exacerbation Continue with Anoro Patient will benefit from pulmonary follow-up as outpatient PFTs as an outpatient --Current smoker Advised to quit Plan: Chest x-ray from today still shows bilateral infiltrates. Minimal blunting of the right costophrenic angle. Blood culture was positive for Klebsiella ammonia which is pansensitive Can de-escalate antibiotics to IV Rocephin for 10 days Mucomyst has been added as patient was complaining of phlegm unable to bring it up Continue with incentive spirometry and flutter valve Continue with the above-mentioned care. Pulmonary will follow peripherally. Call directly with any questions Case discussed with Dr. Soares Please note the above document was generated using voice recognition software. It may contain grammatical, syntax or spelling errors.Any formal questions or concerns about the content, text or information contained within the body of this dictation should be directly addressed to the provider for clarification. Admission and Anticipated Discharge Date Admission Date: November 12, 2020 Subjective Patient seen and examined at bedside. No acute distress, no adverse events overnight. Patient was saturating 93-94% on 3 days nasal cannula Patient was having breakfast just prior to examining her. Shortness of breath is improved. Denies any chest pain, has been using the flutter valve. Has been using incentive started as well advised to do it more aggressively. Fair appetite. Denies any difficulty swallowing currently. Review of Systems Review of Systems: All systems reviewed & are unremarkable except as noted in Subjective Physical Exam Physical Exam: Constitutional: No acute distress HEENT: EOMI, PERRLA Respiratory system: Decreased air entry bilaterally, no wheeze, no rhonchi, positive crackles bilateral lower lobes CVS: S1-S2 positive, no murmurs or gallops Abdomen: Soft, nontender, nondistended, positive bowel sounds x4 Extremities: +2 pulses bilaterally radialis/ dorsalis pedis, no cyanosis, no edema Neuro: Awake alert oriented x3 Psych: Normal mood and affect G/U: Positive Causey Skin: no rashes, warm and dry Lymphatic: no cervical or axillary lymphadenopathy Results & Data Results & Data ([facility]) Vital Signs (Past 12 Hours) Vital Signs Temp Pulse Pulse Resp BP Pulse Ox 11/15/20 11:11 91 H 20 93 11/15/20 07:39 93 11/15/20 07:05 36.6 C 86 18 134/84 88 L 11/15/20 07:00 88 11/15/20 03:46 36.9 C 87 18 113/75 93 11/14/20 23:48 36.9 C 83 18 148/84 H 96 11/15/20 07:25 11/15/20 07:25 PG Care Time/CCT Total # of Minutes Spent Total Time Spent with Patient: Total time spent is greater than 50% in coordination of care (as documented) at patient's floor/unit and/or counseling patient: Coding Level of Care Code 08453 Subseq Hosp Care Lvl 3 Diagnoses COPD (chronic obstructive pulmonary disease) J44.9 COPD type: unspecified COPD Multifocal pneumonia J18.9 Current smoker F17.200 Acute and chronic respiratory failure with hypoxia J96.21
[2020-11-15] MEDS: SENNA 8.6 MG TAB PO SCH (11:52)
--- NOTE | 2020-11-15 12:54 | Hospitalist Progress Note ---
Date of Service November 15, 2020 Assessment & Plan (1) Acute respiratory failure: Plan: Due to likely aspiration pneumonia. Blood culture growing awan-sensitive Klebsiella which could be from pneumonia. In theory, could be from central line infection, but bacteria spc makes this unlikely. - Continue O2 - Switch Zosyn to ceftriaxone (2) Multifocal pneumonia: Plan: Likely aspiration. - As above (3) Bacteremia: Plan: Blood culture from 11/12 growing awan-sensitive Klebsiella. Likely due to pneumonia. - Abx as above - Repeat blood cultures (4) Aspiration into lower respiratory tract: Plan: Patient sadly did very poorly with video swallow on 11/13. She aspirated her own saliva and thin liquids which improved with chin tuck. - HORSE RACETRACK MANAGER recs include: * Easy to chew diet, SLIPPERY (avoid dry, thick, pasty foods) * Aspiration precautions * Complete chin tuck with all liquids (take a small sip, hold in mouth, tuck chin, and then swallow with chin down) * Strict mouth care * GI and ENT consults -> Discussed with GI. No plan for emergent EGD here for the possible diver ticulum. 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 Will follow up outpatient with [facility]. (5) Zenker's diverticulum: Plan: Noted on video swallow on 11/13. 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 (6) COPD (chronic obstructive pulmonary disease): Plan: Patient was on a prednisone taper and is now on 20 mg p.o. daily. - Restart IV Solu-Medrol at 40 mg every 6 hours due to wheezing on admission. - Tapered to Solu-Medrol 40 mg IV daily by pulmonary, then stopped on 11/14 by pulm. - DuoNebs 4 times daily with as needed albuterol (7) Hypothyroid: Plan: TSH was 1.2 this admission. - Continue levothyroxine 75 mcg daily (8) Hyperlipidemia: Plan: - Continue atorvastatin (9) GERD (gastroesophageal reflux disease): Plan: - Continue pantoprazole PO BID (10) DVT prophylaxis: Plan: Lovenox 40 mg SQ daily Admission and Anticipated Discharge Date Admission Date: November 12, 2020 Subjective Doing better today. She is less worried about her breathing today and more worried about a back surgery. She reports some chronic foot-drop which she had been told at her prior hospital would require a lumbar fusion before she could walk again. This is not changing acutely. She has a physician in [place] that she would like to see for it. Physical Exam Constitutional: WD/WN, vitals as above Eyes: EOM intact bilaterally; no conjunctival abnormality ENMT: external ear and nose normal, oropharynx normal Neck: trachea midline, no thyromegaly normal visual inspection Respiratory: + labored breathing; no respiratory distress Auscultation: + wheezes (Trace) Cardiovascular: RRR, no murmur, no edema Gastrointestinal (Abdomen): Inspection/Auscultation: abdomen normal to inspection; abdomen not distended Musculoskeletal: no cyanosis or clubbing, extremities motor strength 5/5 Skin: no rashes, warm and dry Neurologic: moves all extremities and awake Psychiatric: Orientation: alert, oriented to person and cooperative Results & Data Results & Data ([facility]) Vital Signs (Past 12 Hours) Vital Signs Temp Pulse Pulse Resp BP Pulse Ox 11/15/20 11:34 36.6 C 95 H 18 147/77 H 91 11/15/20 11:11 91 H 20 93 11/15/20 07:39 93 11/15/20 07:05 36.6 C 86 18 134/84 88 L 11/15/20 07:00 88 11/15/20 03:46 36.9 C 87 18 113/75 93 PG Care Time/CCT Total # of Minutes Spent Total Time Spent with Patient: Total time spent is greater than 50% in coordination of care (as documented) at patient's floor/unit and/or counseling patient: Coding Level of Care Code 12003 Subseq Hosp Care Lvl 3 Diagnoses Acute respiratory failure J96.01; J96.02 Respiratory failure complication: hypoxia and hypercapnia Multifocal pneumonia J18.9 Bacteremia R78.81 Aspiration into lower respiratory tract T17.800A Zenker's diverticulum K22.5 COPD (chronic obstructive pulmonary disease) J44.9 COPD type: unspecified COPD Hypothyroid E03.9 Hyperlipidemia E78.5 GERD (gastroesophageal reflux disease) K21.9 DVT prophylaxis Z29.9 (1) Acute respiratory failure Respiratory failure complication: hypoxia and hypercapnia Qualified Code(s): J96.01 - Acute respiratory failure with hypoxia; J96.02 - Acute respiratory failure with hypercapnia (2) COPD (chronic obstructive pulmonary disease) COPD type: unspecified COPD Qualified Code(s): J44.9 - Chronic obstructive pulmonary disease, unspecified
[2020-11-15] MEDS: LIDOCAINE 5% 1 PATCH TD SCH (17:35)
[2020-11-15] MEDS: cefTRIAXone SODIUM 1,000 MG in DEXTROSE 5% 50 ML IV SCH (17:44)
[2020-11-15] MEDS: ATORVASTATIN 20 MG TAB PO SCH (20:06)
[2020-11-16] MEDS: LEVOTHYROXINE SODIUM 75 MCG TABLET PO SCH (05:59)
[2020-11-16] MEDS: lamoTRIgine 25 MG TAB PO SCH ×2 (06:00→17:16)
[2020-11-16 07:12] LABS: Hematocrit (blood only) 34.3 % (37-47); Hemoglobin 10.9 g/dL (12.0-16.0); Mean Corpuscular Hemoglobin 32.8 pg (25-34); Mean Corpuscular Hgb Conc 31.8 g/dL (32-36); Mean Corpuscular Volume 103.3 fL (80-100); Mean Platelet Volume 9.8 fL (7.4-10.4); Platelet Count 235 K/uL (130-400); RDW Coefficient of Variation 14.1 % (11.5-14.5); RDW Standard Deviation 53.4 fL (36.4-46.3); Red Blood Count 3.32 M/uL (4.2-5.4); White Blood Count 8.53 K/uL (4.8-10.8)
[2020-11-16] MEDS: ALBUT/IPRATROP 3MG/0.5MG NEB 3 ML VIAL INH PRN ×2 (07:24→19:39)
[2020-11-16] MEDS: ACETYLCYSTEINE 20% INHAL SOLN 4ML ***DISPENSED BY RESP. INH SCH ×2 (07:24→19:39)
[2020-11-16 07:56] LABS: BUN Creatinine Ratio 33.3 (10-20); Calcium 8.8 mg/dl (8.5-10.1); Creatinine Clr Calc Pharmacy 124.6 ml/min; Est GFR (African American) 128.1 ml/min; Est GFR (Non-African American) 110.6 ml/min; Magnesium 1.3 mg/dl (1.8-2.4); Potassium 3.6 mmol/L (3.5-5.1)
[2020-11-16] MEDS: VENLAFAXINE HCL XR 150 MG CAPXR PO SCH (08:49)
[2020-11-16] MEDS: METOPROLOL SUCC 25MG EXT REL TAB PO SCH ×2 (08:50→21:14)
[2020-11-16] MEDS: guaiFENesin 600 MG TABCR PO SCH ×2 (08:50→21:13)
[2020-11-16] MEDS: ACETAMINOPHEN 500 MG TAB PO SCH ×3 (08:50→21:14)
[2020-11-16] MEDS: NICOTINE 14 MG/24 HR PATCH TD SCH (08:50)
[2020-11-16] MEDS: GABAPENTIN 600 MG TAB PO SCH ×3 (08:50→21:15)
[2020-11-16] MEDS: ASPIRIN 81 MG ECTAB PO SCH (08:51)
[2020-11-16] MEDS: SACCHAROMYCES BOULARDII 250 MG CAP PO SCH (08:51)
[2020-11-16] MEDS: CYANOCOBALAMIN 500 MCG TABLET (VITAMIN B-12) PO SCH (08:51)
[2020-11-16] MEDS: IRON POLYSACCHARIDE COMPLEX 150 MG CAPSULE PO SCH (08:51)
[2020-11-16] MEDS: UMECLIDINIUM/VILANTEROL 62.5/25MCG 7 PUFFS/INHALER INH SCH (08:51)
[2020-11-16] MEDS: PANTOprazole 40 MG TAB PO SCH ×2 (08:51→17:16)
[2020-11-16] MEDS: dilTIAZem HCL 240 MG CAPCR PO SCH (08:51)
[2020-11-16] MEDS: ENOXAPARIN INJ 40 MG/0.4 ML SYR SQ SCH (08:52)
[2020-11-16] MEDS: MAGNESIUM SULFATE / D5W 1 GM/100 ML BAG IV SCH ×3 (08:53→13:00)
[2020-11-16] MEDS: LIDOCAINE 5% 1 PATCH TD SCH (10:43)
[2020-11-16] MEDS: SENNA 8.6 MG TAB PO SCH (11:38)
--- NOTE | 2020-11-16 16:13 | Hospitalist Progress Note ---
Date of Service November 16, 2020 Assessment & Plan (1) Acute respiratory failure: Plan: Due to likely aspiration pneumonia. Blood culture growing awan-sensitive Klebsiella which could be from pneumonia. In theory, could be from central line infection, but bacteria spc makes this unlikely. - Continue O2, stable on 2-4L today - continue ceftriaxone 10 total days of treatment pleuritic pain posteriorly today, CXR with no new changes (2) Multifocal pneumonia: Plan: Likely aspiration. - As above (3) Bacteremia: Plan: Blood culture from 11/12 growing awan-sensitive Klebsiella. Likely due to pneumonia. - Abx as above - Repeat blood cultures - no growth Rocephin x 10 days total treatment (4) Aspiration into lower respiratory tract: Plan: Patient sadly did very poorly with video swallow on 11/13. She aspirated her own saliva and thin liquids which improved with chin tuck. - SCALEMAN recs include: * Easy to chew diet, SLIPPERY (avoid dry, thick, pasty foods) * Aspiration precautions * Complete chin tuck with all liquids (take a small sip, hold in mouth, tuck chin, and then swallow with chin down) * Strict mouth care * GI and ENT consults -> Discussed with GI. No plan for emergent EGD here for the possible diverticulum. 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 Will follow up outpatient with [facility]. (5) Zenker's diverticulum: Plan: Noted on video swallow on 11/13. 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 (6) COPD (chronic obstructive pulmonary disease): Plan: Patient was on a prednisone taper and is now on 20 mg p.o. daily. - Restart IV Solu-Medrol at 40 mg every 6 hours due to wheezing on admission. - Tapered to Solu-Medrol 40 mg IV daily by pulmonary, then stopped on 11/14 by pulm. - DuoNebs 4 times daily with as needed albuterol (7) Hypothyroid: Plan: TSH was 1.2 this admission. - Continue levothyroxine 75 mcg daily (8) Hyperlipidemia: Plan: - Continue atorvastatin (9) GERD (gastroesophageal reflux disease): Plan: - Continue pantoprazole PO BID (10) DVT prophylaxis: Plan: Lovenox 40 mg SQ daily Admission and Anticipated Discharge Date Admission Date: November 12, 2020 Subjective patient sitting up in chair, her main complaint is bilateral pain in her back, hurts to take a deep breath, really limited she says she woke up with this pain, did not have it yesterday coughing up ramirez mucous she is eating/drinking, trying to remember to tuck her chin to prevent aspiration appreciate note from pulmonology CXR done due to pleuritic pain and dyspnea, requiring 2-4L which has been her baseline stable findings gave her Morphine 2m IV for pain Review of Systems Review of Systems: All systems reviewed & are unremarkable except as noted in Subjective Constitutional: + fatigue and + weakness; no fever Respiratory: + cough, + dyspnea, + dyspnea on exertion, + pain on inspiration (posterior ribs, bilaterally), + pain with cough and + sputum production Cardiovascular: no chest pain, no edema and no claudication Gastrointestinal: no abdominal pain, no nausea, no vomiting, no constipation and no diarrhea/loose stools Physical Exam Constitutional: well developed, + ill appearing, + thin and + frail appearing; no acute distress and + uncomfortable (due to back pain) Respiratory: + cough; no respiratory distress and no labored breathing Auscultation: + diminished lung sounds; no crackles, no rhonchi and no wheezes Cardiovascular: RRR, no murmur, no edema Gastrointestinal (Abdomen): normal bowel sounds, soft, nontender, no hepatosplenomegaly Musculoskeletal: no cyanosis or clubbing, extremities motor strength 5/5 Skin: no rashes, warm and dry Neurologic: normal touch/pain/proprioception, CN's II-XI intact bilaterally, moves all extremities and awake; no focal motor deficits and not confused Psychiatric: Orientation: alert and oriented x 3 Affect: + irritable affect Results & Data Results & Data ([facility]) Vital Signs (Past 12 Hours) Vital Signs Temp Pulse Pulse Pulse Resp BP Pulse Ox 11/16/20 14:46 36.6 C 93 H 18 123/79 90 11/16/20 11:32 37.3 C 107 H 20 125/81 93 11/16/20 07:24 106 H 18 88 L 11/16/20 07:17 36.9 C 106 H 19 163/83 H 84 L 11/16/20 07:00 93 H 11/16/20 04:22 37.1 C 89 18 170/92 H 92 Laboratory Results Laboratory Results - last 24 hr 11/16/20 11/16/20 06:41 06:41 WBC 8.53 RBC 3.32 L Hgb 10.9 L Hct 34.3 L MCV 103.3 H MCH 32.8 MCHC 31.8 L RDW Std Deviation 53.4 H RDW Coeff of Pau 14.1 Plt Count 235 MPV 9.8 Sodium 135 L Potassium 3.6 Chloride 100 Carbon Dioxide 31 Anion Gap 4.0 BUN 14 Creatinine 0.43 L Est Cr Clr Drug Dosing 124.6 Est GFR ( Amer) 128.1 Est GFR (Non-Af Amer) 110.6 BUN/Creatinine Ratio 33.3 H Glucose 78 Calcium 8.8 Magnesium 1.3 L Diagnostic Findings chest x-ray 11/16 IMPRESSION: 1. Stable small right pleural effusion associated with atelectasis/infiltrate at the right base. 2. Redemonstration of diffuse thickening of pulmonary interstitium which could represent chronic interstitial fibrosis of pulmonary edema. Medications Administered Current Inpatient Medications Acetaminophen (Acetaminophen 500 Mg Tab) 500 mg PO TID [facility] Stop: 12/12/20 20:59 Last Admin: 11/16/20 15:40 Dose: 500 mg Documented by: Acetylcysteine (Acetylcysteine 20% Inhal Soln 4ml Dispensed By Resp.) 5 ml INH Q12R [facility] Stop: 12/15/20 10:59 Last Admin: 11/16/20 07:24 Dose: 5 ml Documented by: Albuterol (Albut/Ipratrop 3mg/0.5mg Neb 3 Ml Vial) 3 ml INH Q4H PRN PRN Reason: Shortness Of Breath Stop: 12/12/20 18:22 Last Admin: 11/16/20 07:24 Dose: 3 ml Documented by: Aspirin (Aspirin 81 Mg Ectab) 81 mg PO DAILY [facility] Stop: 12/13/20 08:59 Last Admin: 11/16/20 08:51 Dose: 81 mg Documented by: Atorvastatin Calcium (Atorvastatin 20 Mg Tab) 20 mg PO HS [facility] Stop: 12/12/20 20:59 Last Admin: 11/15/20 20:06 Dose: 20 mg Documented by: Cyanocobalamin (Cyanocobalamin 500 Mcg Tablet (Vitamin B-12)) 1,000 mcg PO DAILY [facility] Stop: 12/13/20 08:59 Last Admin: 11/16/20 08:51 Dose: 1,000 mcg Documented by: Dicyclomine HCl (Dicyclomine Hcl 10 Mg Cap) 10 mg PO TID PRN PRN Reason: Irritable Bowel Symptoms Stop: 12/12/20 18:22 Diltiazem HCl (Diltiazem Hcl 240 Mg Capcr) 240 mg PO DAILY [facility] Stop: 12/13/20 08:59 Last Admin: 11/16/20 08:51 Dose: 240 mg Documented by: Enoxaparin Sodium (Enoxaparin Inj 40 Mg/0.4 Ml Syr) 40 mg SQ DAILY [facility] Stop: 12/13/20 08:59 Last Admin: 11/16/20 08:52 Dose: 40 mg Documented by: Ergocalciferol (Ergocalciferol 50,000 Units 1250 Mcg Cap) 50,000 units PO Fr@0900 [facility] Stop: 12/15/20 08:59 Last Admin: 11/15/20 08:03 Dose: 50,000 units Documented by: Gabapentin (Gabapentin 600 Mg Tab) 1,200 mg PO TID [facility] Stop: 12/12/20 20:59 Last Admin: 11/16/20 15:40 Dose: 1,200 mg Documented by: Guaifenesin (Guaifenesin 600 Mg Tabcr) 600 mg PO Q12 [facility] Stop: 12/13/20 20:59 Last Admin: 11/16/20 08:50 Dose: 600 mg Documented by: Ceftriaxone Sodium 1,000 mg/ (Dextrose) 50 mls @ 100 mls/hr IV Q24H [facility]; Protocol Stop: 11/22/20 16:59 Last Infusion: 11/15/20 18:56 Dose: Infused Documented by: Lamotrigine (Lamotrigine 25 Mg Tab) 50 mg PO Q12H [facility] Stop: 12/12/20 18:22 Last Admin: 11/16/20 06:00 Dose: 50 mg Documented by: Levothyroxine Sodium (Levothyroxine Sodium 75 Mcg Tablet) 75 mcg PO DAILYBB [facility] Stop: 12/13/20 06:29 Last Admin: 11/16/20 05:59 Dose: 75 mcg Documented by: Lidocaine (Lidocaine 5% 1 Patch) 1 patch TD QAM [facility] Stop: 12/15/20 17:29 Last Admin: 11/16/20 10:43 Dose: 1 patch Documented by: Metoprolol Succinate (Metoprolol Succ 25mg Ext Rel Tab) 25 mg PO BID [facility] Stop: 12/12/20 20:59 Last Admin: 11/16/20 08:50 Dose: 25 mg Documented by: Una (Remove Nicoderm Patch) 1 ea N/A QAM [facility] Stop: 12/13/20 08:59 Last Admin: 11/16/20 08:51 Dose: 1 ea Documented by: Daisycellaneous (Remove Lidoderm Patch) 1 ea N/A DAILY@2100 [facility] Stop: 12/15/20 23:58 Last Admin: 11/15/20 20:08 Dose: Not Given Documented by: Nicotine (Nicotine 14 Mg/24 Hr Patch) 14 mg TD QAM [facility] Stop: 12/13/20 08:59 Last Admin: 11/16/20 08:50 Dose: 14 mg Documented by: Ondansetron HCl (Ondansetron Inj 2 Mg/Ml 2 Ml Vial) 4 mg IV Q6H PRN PRN Reason: Nausea Stop: 12/12/20 18:22 Pantoprazole Sodium (Pantoprazole 40 Mg Tab) 40 mg PO BIDM [facility] Stop: 12/12/20 19:29 Last Admin: 11/16/20 08:51 Dose: 40 mg Documented by: Polysaccharide Iron Complex (Iron Polysaccharide Complex 150 Mg Capsule) 150 mg PO DAILY [facility] Stop: 12/13/20 08:59 Last Admin: 11/16/20 08:51 Dose: 150 mg Documented by: Saccharomyces Boulardii (Saccharomyces Boulardii 250 Mg Cap) 250 mg PO DAILY [facility] Stop: 12/15/20 08:59 Last Admin: 11/16/20 08:51 Dose: 250 mg Documented by: Sennosides (Senna 8.6 Mg Tab) 8.6 mg PO QDL [facility] Stop: 12/13/20 11:29 Last Admin: 11/16/20 11:38 Dose: Not Given Documented by: Umeclidinium/Vilanterol (Umeclidinium/Vilanterol 62.5/25mcg 7 Puffs/Inhaler) 1 puffs INH DAILY [facility] Stop: 12/13/20 08:59 Last Admin: 11/16/20 08:51 Dose: 1 puffs Documented by: Venlafaxine HCl (Venlafaxine Hcl Xr 150 Mg Capxr) 150 mg PO DAILY [facility] Stop: 12/13/20 08:59 Last Admin: 11/16/20 08:49 Dose: 150 mg Documented by: PG Care Time/CCT Total # of Minutes Spent Total Time Spent with Patient: Total time spent is greater than 50% in coor dination of care (as documented) at patient's floor/unit and/or counseling patient: Coding Level of Care Code 67633 Subseq Hosp Care Lvl 2 Diagnoses Acute respiratory failure J96.01; J96.02 Respiratory failure complication: hypoxia and hypercapnia Multifocal pneumonia J18.9 Bacteremia R78.81 Aspiration into lower respiratory tract T17.800A Zenker's diverticulum K22.5 COPD (chronic obstructive pulmonary disease) J44.9 COPD type: unspecified COPD Hypothyroid E03.9 Hyperlipidemia E78.5 GERD (gastroesophageal reflux disease) K21.9 DVT prophylaxis Z29.9 (1) Acute respiratory failure Respiratory failure complication: hypoxia and hypercapnia Qualified Code(s): J96.01 - Acute respiratory failure with hypoxia; J96.02 - Acute respiratory failure with hypercapnia (2) COPD (chronic obstructive pulmonary disease) COPD type: unspecified COPD Qualified Code(s): J44.9 - Chronic obstructive pulmonary disease, unspecified
[2020-11-16] MEDS: MoRPHine SULFATE 2 MG/ML CARP IV PRN ×2 (16:39→20:30)
[2020-11-16] MEDS: cefTRIAXone SODIUM 1,000 MG in DEXTROSE 5% 50 ML IV SCH (17:17)
--- NOTE | 2020-11-16 17:56 | XRay Report ---
XR chest 1V portable CLINICAL HISTORY: worsening dyspnea, pleuritic pain COMPARISON STUDY: November 15, 2020 FINDINGS: No pneumothorax. Redemonstration of the small right pleural effusion associated with atelectasis/infiltrate at the rig ht base. Lung volumes are decreased with crowded lung markings. Redemonstration of diffuse reticular prominenc e of pulmonary interstitium and mild peribronchial cuffing. Cardiomediastinal silhouette is within normal limits in size. No significant pulmonary vascular congestion.. Osseous structures: unremarkable IMPRESSION: 1. Stable small right pleural effusion associated with atelectasis/infiltrate at the right base. 2. Redemonstration of diffuse thickening of pulmonary interstitium which could represent chronic int erstitial fibrosis of pulmonary edema. ACT 112: Negative or not required by law. The above report was generated using voice recognition software. It may contain grammatical, syntax o r spelling errors. Electronically signed by: Carissa Brennan DO 11/16/2020 5:55 PM
[2020-11-16] MEDS: ATORVASTATIN 20 MG TAB PO SCH (21:16)
[2020-11-17] MEDS: MoRPHine SULFATE 2 MG/ML CARP IV PRN ×6 (00:52→22:31)
[2020-11-17] MEDS: LEVOTHYROXINE SODIUM 75 MCG TABLET PO SCH (06:05)
[2020-11-17] MEDS: lamoTRIgine 25 MG TAB PO SCH ×2 (06:05→17:11)
[2020-11-17] MEDS: ALBUT/IPRATROP 3MG/0.5MG NEB 3 ML VIAL INH PRN ×2 (07:09→19:00)
[2020-11-17] MEDS: ACETYLCYSTEINE 20% INHAL SOLN 4ML ***DISPENSED BY RESP. INH SCH ×2 (07:09→19:00)
[2020-11-17 08:10] LABS: Basophils # (auto) 0.02 K/uL (0-0.2); Basophils % (auto) 0.2 %; Eosinophils % (auto) 0.8 %; Hematocrit (blood only) 35.2 % (37-47); Hemoglobin 11.3 g/dL (12.0-16.0); Immature Granulocytes # (auto) 0.42 K/uL (0.00-0.02); Immature Granulocytes % (auto) 3.2 %; Lymphocytes % (auto) 12.2 %; Mean Corpuscular Hemoglobin 33.3 pg (25-34); Mean Corpuscular Hgb Conc 32.1 g/dL (32-36); Mean Corpuscular Volume 103.8 fL (80-100); Mean Platelet Volume 9.6 fL (7.4-10.4); Monocytes # (auto) 0.77 K/uL (0.11-0.59); Monocytes % (auto) 5.9 %; Neutrophils # (auto) 10.19 K/uL (1.4-6.5); Neutrophils % (auto) 77.7 %; Nucleated RBC # (auto) 0.03 K/uL (0-0); Nucleated RBC % (auto) 0.2 %; Platelet Count 276 K/uL (130-400); RDW Coefficient of Variation 14.3 % (11.5-14.5); RDW Standard Deviation 53.8 fL (36.4-46.3); Red Blood Count 3.39 M/uL (4.2-5.4)
[2020-11-17] MEDS: SACCHAROMYCES BOULARDII 250 MG CAP PO SCH (08:19)
[2020-11-17] MEDS: LIDOCAINE 5% 1 PATCH TD SCH (08:20)
[2020-11-17] MEDS: ACETAMINOPHEN 500 MG TAB PO SCH ×3 (08:20→21:36)
[2020-11-17] MEDS: CYANOCOBALAMIN 500 MCG TABLET (VITAMIN B-12) PO SCH (08:21)
[2020-11-17] MEDS: GABAPENTIN 600 MG TAB PO SCH ×3 (08:21→21:39)
[2020-11-17] MEDS: VENLAFAXINE HCL XR 150 MG CAPXR PO SCH (08:21)
[2020-11-17] MEDS: dilTIAZem HCL 240 MG CAPCR PO SCH (08:21)
[2020-11-17] MEDS: ASPIRIN 81 MG ECTAB PO SCH (08:21)
[2020-11-17] MEDS: PANTOprazole 40 MG TAB PO SCH ×2 (08:21→17:11)
[2020-11-17] MEDS: IRON POLYSACCHARIDE COMPLEX 150 MG CAPSULE PO SCH (08:21)
[2020-11-17] MEDS: ENOXAPARIN INJ 40 MG/0.4 ML SYR SQ SCH (08:22)
[2020-11-17] MEDS: NICOTINE 14 MG/24 HR PATCH TD SCH (08:22)
[2020-11-17] MEDS: METOPROLOL SUCC 25MG EXT REL TAB PO SCH ×2 (08:22→21:38)
[2020-11-17] MEDS: guaiFENesin 600 MG TABCR PO SCH ×2 (08:22→22:39)
[2020-11-17] MEDS: UMECLIDINIUM/VILANTEROL 62.5/25MCG 7 PUFFS/INHALER INH SCH (08:23)
[2020-11-17 08:26] LABS: BUN Creatinine Ratio 28.2 (10-20); Creatinine Clr Calc Pharmacy 133.9 ml/min; Est GFR (African American) 131.2 ml/min; Est GFR (Non-African American) 113.2 ml/min
[2020-11-17] MEDS: SENNA 8.6 MG TAB PO SCH (11:45)
--- NOTE | 2020-11-17 15:00 | Hospitalist Progress Note ---
Date of Service November 17, 2020 Assessment & Plan (1) Acute respiratory failure: Plan: Due to likely aspiration pneumonia. Blood culture growing awan-sensitive Klebsiella which could be from pneumonia. In theory, could be from central line infection, but bacteria spc makes this unlikely. - Continue O2, up a little at 6L today, saturations 90-93% - continue ceftriaxone 10 total days of treatment pleuritic pain posteriorly, this is problematic as it is really limiting her ability to take deep breath and cough forcefully CTA chest 11/17 with no evidence of PE, shows bibasilar infiltrates, right > left, right effusion and debris in airway try to control pain with K pad, Morphine PRN try to increase activity with therapy continue flutter valve and incentive spirometer (2) Multifocal pneumonia: Plan: due to aspiration. - As above, continue Rocephin (3) Bacteremia: Plan: Blood culture from 11/12 growing awan-sensitive Klebsiella. Likely due to pneumonia. - Abx as above - Repeat blood cultures - no growth Rocephin x 10 days total, last day would be 11/22 (4) Aspiration into lower respiratory tract: Plan: Patient sadly did very poorly with video swallow on 11/13. She aspirated her own saliva and thin liquids which improved with chin tuck. - ONLINE MEDIA DIRECTOR recs include: * Easy to chew diet, SLIPPERY (avoid dry, thick, pasty foods) * Aspiration precautions * Complete chin tuck with all liquids (take a small sip, hold in mouth, tuck chin, and then swallow with chin down) * Strict mouth care * GI and ENT consults -> Discussed with GI. No plan for emergent EGD here for the possible diverticulum. 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 Will follow up outpatient with [facility]. CTA chest today with debris in airway on right, back pain limiting how forceful she can cough, no a good combination (5) Zenker's diverticulum: Plan: Noted on video swallow on 11/13. 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 follow up with GI in [place] per patient's discretion (6) COPD (chronic obstructive pulmonary disease): Plan: Patient was on a prednisone taper and is now on 20 mg p.o. daily. - Restart IV Solu-Medrol at 40 mg every 6 hours due to wheezing on admission. - Tapered to Solu-Medrol 40 mg IV daily by pulmonary, then stopped on 11/14 by pulm. - DuoNebs 4 times daily with as needed albuterol (7) Hypothyroid: Plan: TSH was 1.2 this admission. - Continue levothyroxine 75 mcg daily (8) Hyperlipidemia: Plan: - Continue atorvastatin (9) GERD (gastroesophageal reflux disease): Plan: - Continue pantoprazole PO BID (10) DVT prophylaxis: Plan: Lovenox 40 mg SQ daily Admission and Anticipated Discharge Date Admission Date: November 12, 2020 Subjective patient still with back pain, really limiting how much of deep breath she can take inspiration is blunted sharply, she cannot cough very forcefully checked CXR - no change from yesterday saturations 90% on 6L, up from 4L yesterday she says she feels about the same in terms of breathing HR elevated, 100-120 today, sinus tach checked CTA chest to rule out PE but also better assess effusion, infiltrate no PE seen, similar appearance of lung parenchyma compared to 11/12, effusion a little larger, debris in right airway discussed with her my concerns that her pain is limiting her ability to take juanjo p breaths and cough with her aspiration is is absolutely imperative that she is able to generate a strong cough she is eating okay, no fever reviewed labs today Review of Systems Review of Systems: All systems reviewed & are unremarkable except as noted in Subjective Respiratory: + cough, + dyspnea, + dyspnea on exertion, + pain on inspiration (back bilaterally), + pain with cough and + sputum production Gastrointestinal: no abdominal pain, no nausea, no vomiting, no constipation and no diarrhea/loose stools Physical Exam Constitutional: well developed, + ill appearing, + thin and + frail appearing; no acute distress and + uncomfortable (due to back pain) Respiratory: + cough; no respiratory distress and no labored breathing Auscultation: + diminished lung sounds; no crackles, no rhonchi and no wheezes Cardiovascular: Rate/Rhythm: regular rhythm and + tachycardic Heart Sounds: normal S1 and normal S2; no murmur Extremities: normal capillary refill; no edema Gastrointestinal (Abdomen): normal bowel sounds, soft, nontender, no hepatosplenomegaly Musculoskeletal: no cyanosis or clubbing, extremities motor strength 5/5 Skin: no rashes, warm and dry Neurologic: normal touch/pain/proprioception, CN's II-XI intact bilaterally, moves all extremities and awake; no focal motor deficits and not confused Psychiatric: Orientation: alert and oriented x 3 Affect: + irritable affect Results & Data Results & Data ([facility]) Vital Signs (Past 12 Hours) Vital Signs Temp Pulse Pulse Pulse Resp BP Pulse Ox 11/17/20 10:49 121 H 20 90 11/17/20 08:00 36.8 C 98 H 20 134/81 96 11/17/20 07:09 106 H 18 88 L 11/17/20 07:01 102 H 11/17/20 03:50 36.9 C 98 H 22 139/72 90 Laboratory Results Laboratory Results - last 24 hr 11/17/20 11/17/20 07:51 07:51 WBC 13.10 H RBC 3.39 L Hgb 11.3 L Hct 35.2 L MCV 103.8 H MCH 33.3 MCHC 32.1 RDW Std Deviation 53.8 H RDW Coeff of Pau 14.3 Plt Count 276 MPV 9.6 Immature Gran % (Auto) 3.2 Neut % (Auto) 77.7 Lymph % (Auto) 12.2 [place] % (Auto) 5.9 Eos % (Auto) 0.8 Baso % (Auto) 0.2 Neut # (Auto) 10.19 H Lymph # (Auto) 1.60 [place] # (Auto) 0.77 H Eos # (Auto) 0.10 Baso # (Auto) 0.02 Immature Gran # (Auto) 0.42 H Absolute Nucleated RBC 0.03 H Nucleated RBC % (auto) 0.2 Sodium 134 L Potassium 4.0 Chloride 96 L Carbon Dioxide 32 Anion Gap 5.0 BUN 11 Creatinine 0.40 L Est Cr Clr Drug Dosing 133.9 Est GFR ( Amer) 131.2 Est GFR (Non-Af Amer) 113.2 BUN/Creatinine Ratio 28.2 H Glucose 95 Calcium 9.0 Medications Administered Current Inpatient Medications Acetaminophen (Acetaminophen 500 Mg Tab) 500 mg PO TID [facility] Stop: 12/12/20 20:59 Last Admin: 11/17/20 14:33 Dose: 500 mg Documented by: Acetylcysteine (Acetylcysteine 20% Inhal Soln 4ml Dispensed By Resp.) 5 ml INH Q12R [facility] Stop: 12/15/20 10:59 Last Admin: 11/17/20 07:09 Dose: 5 ml Documented by: Albuterol (Albut/Ipratrop 3mg/0.5mg Neb 3 Ml Vial) 3 ml INH Q4H PRN PRN Reason: Shortness Of Breath Stop: 12/12/20 18:22 Last Admin: 11/17/20 07:09 Dose: 3 ml Documented by: Aspirin (Aspirin 81 Mg Ectab) 81 mg PO DAILY [facility] Stop: 12/13/20 08:59 Last Admin: 11/17/20 08:21 Dose: 81 mg Documented by: Atorvastatin Calcium (Atorvastatin 20 Mg Tab) 20 mg PO HS [facility] Stop: 12/12/20 20:59 Last Admin: 11/16/20 21:16 Dose: 20 mg Documented by: Cyanocobalamin (Cyanocobalamin 500 Mcg Tablet (Vitamin B-12)) 1,000 mcg PO DAILY [facility] Stop: 12/13/20 08:59 Last Admin: 11/17/20 08:21 Dose: 1,000 mcg Documented by: Dicyclomine HCl (Dicyclomine Hcl 10 Mg Cap) 10 mg PO TID PRN PRN Reason: Irritable Bowel Symptoms Stop: 12/12/20 18:22 Diltiazem HCl (Diltiazem Hcl 240 Mg Capcr) 240 mg PO DAILY [facility] Stop: 12/13/20 08:59 Last Admin: 11/17/20 08:21 Dose: 240 mg Documented by: Enoxaparin Sodium (Enoxaparin Inj 40 Mg/0.4 Ml Syr) 40 mg SQ DAILY [facility] Stop: 12/13/20 08:59 Last Admin: 11/17/20 08:22 Dose: 40 mg Documented by: Ergocalciferol (Ergocalciferol 50,000 Units 1250 Mcg Cap) 50,000 units PO Fr@0900 [facility] Stop: 12/15/20 08:59 Last Admin: 11/15/20 08:03 Dose: 50,000 units Documented by: Gabapentin (Gabapentin 600 Mg Tab) 1,200 mg PO TID [facility] Stop: 12/12/20 20:59 Last Admin: 11/17/20 14:33 Dose: 1,200 mg Documented by: Guaifenesin (Guaifenesin 600 Mg Tabcr) 600 mg PO Q12 [facility] Stop: 12/13/20 20:59 Last Admin: 11/17/20 08:22 Dose: 600 mg Documented by: Ceftriaxone Sodium 1,000 mg/ (Dextrose) 50 mls @ 100 mls/hr IV Q24H [facility]; Protocol Stop: 11/22/20 16:59 Last Infusion: 11/16/20 19:00 Dose: Infused Documented by: Lamotrigine (Lamotrigine 25 Mg Tab) 50 mg PO Q12H [facility] Stop: 12/12/20 18:22 Last Admin: 11/17/20 06:05 Dose: 50 mg Documented by: Levothyroxine Sodium (Levothyroxine Sodium 75 Mcg Tablet) 75 mcg PO DAILYBB [facility] Stop: 12/13/20 06:29 Last Admin: 11/17/20 06:05 Dose: 75 mcg Documented by: Lidocaine ([facility]oc[facility] 5% 1 Patch) [facility] [place] [place] Stop: 12/15/20 17:29 Last Admin: 11/17/20 08:20 Dose: 1 patch Documented by: Metoprolol Succinate (Metoprolol Succ 25mg Ext Rel Tab) 25 mg PO BID [facility] Stop: 12/12/20 20:59 Last Admin: 11/17/20 08:22 Dose: 25 mg Documented by: Miscellaneous (Remove Nicoderm Patch) 1 ea N/A QAM [facility] Stop: 12/13/20 08:59 Last Admin: 11/17/20 08:27 Dose: 1 ea Documented by: Miscellaneous (Remove Lidoderm Patch) 1 ea N/A DAILY@2100 [facility] Stop: 12/15/20 23:58 Last Admin: 11/16/20 21:16 Dose: 1 ea Documented by: Morphine Sulfate (Morphine Sulfate 2 Mg/Ml Carp) 2 mg IV Q4H PRN PRN Reason: Pain Stop: 11/30/20 16:17 Last Admin: 11/17/20 14:27 Dose: 2 mg Documented by: Nicotine (Nicotine 14 Mg/24 Hr Patch) 14 [facility] [place] [place] Stop: 12/13/20 08:59 Last Admin: 11/17/20 08:22 Dose: 14 mg Documented by: Ondansetron HCl (Ondansetron Inj 2 Mg/Ml 2 Ml Vial) 4 mg IV Q6H PRN PRN Reason: Nausea Stop: 12/12/20 18:22 Pantoprazole Sodium (Pantoprazole 40 Mg Tab) 40 mg PO BIDM [facility] Stop: 12/12/20 19:29 Last Admin: 11/17/20 08:21 Dose: 40 mg Documented by: Polysaccharide Iron Complex (Iron Polysaccharide Complex 150 Mg Capsule) 150 mg PO DAILY [facility] Stop: 12/13/20 08:59 Last Admin: 11/17/20 08:21 Dose: 150 mg Documented by: Saccharomyces Boulardii (Saccharomyces Boulardii 250 Mg Cap) 250 mg PO DAILY [facility] Stop: 12/15/20 08:59 Last Admin: 11/17/20 08:19 Dose: 250 mg Documented by: Sennosides (Senna 8.6 Mg Tab) 8.6 mg PO QDL [facility] Stop: 12/13/20 11:29 Last Admin: 11/17/20 11:45 Dose: Not Given Documented by: Umeclidinium/Vilanterol (Umeclidinium/Vilanterol 62.5/25mcg 7 Puffs/Inhaler) 1 puffs INH DAILY [facility] Stop: 12/13/20 08:59 Last Admin: 11/17/20 08:23 Dose: 1 puffs Documented by: Venlafaxine HCl (Venlafaxine Hcl Xr 150 Mg Capxr) 150 mg PO DAILY [facility] Stop: 12/13/20 08:59 Last Admin: 11/17/20 08:21 Dose: 150 mg Documented by: PG Care Time/CCT Total # of Minutes Spent Total Time Spent with Patient: Total time spent is greater than 50% in coordination of care (as documented) at patient's floor/unit and/or counseling patient: Coding Level of Care Code 77213 Subseq Hosp Care Lvl 3 Diagnoses Acute respiratory failure J96.01; J96.02 Respiratory failure complication: hypoxia and hypercapnia Multifocal pneumonia J18.9 Bacteremia R78.81 Aspiration into lower respiratory tract T17.800A Zenker's diverticulum K22.5 COPD (chronic obstructive pulmonary disease) J44.9 COPD type: unspecified COPD Hypothyroid E03.9 Hyperlipidemia E78.5 GERD (gastroesophageal reflux disease) K21.9 DVT prophylaxis Z29.9 (1) Acute respiratory failure Respiratory failure complication: hypoxia and hypercapnia Qualified Code(s): J96.01 - Acute respiratory failure with hypoxia; J96.02 - Acute respiratory failure with hypercapnia (2) COPD (chronic obstructive pulmonary disease) COPD type: unspecified COPD Qualified Code(s): J44.9 - Chronic obstructive pulmonary disease, unspecified
[2020-11-17] MEDS ORDERED: OPTIRAY 320 125ml IV ONE (16:30)
[2020-11-17] MEDS: cefTRIAXone SODIUM 1,000 MG in DEXTROSE 5% 50 ML IV SCH (17:11)
--- NOTE | 2020-11-17 17:26 | XRay Report ---
SINGLE VIEW CHEST CLINICAL HISTORY: Hypoxia. FINDINGS: An AP, portable, upright chest radiograph is compared to study dated 11/16/2020 and correlate d with chest CT dated 11/12/2020. The cardiomediastinal silhouette is unremarkable. Emphysematous huerta e is noted. There is dense bibasilar airspace consolidation, right greater than left. There is a righ t pleural effusion. No pneumothorax is seen. The skeletal structures are osteopenic. The bony thorax is grossly intact. Postoperative change is noted in the left humeral head. IMPRESSION: 1. There is dense bibasilar airspace consolidation, right greater than left. Correlate clinically for evidence of pneumonia/aspiration pneumonitis. Radiographic follow-up to resolution is recommended. 2. Right pleural effusion. 3. Emphysema. ACT 112: Negative or not required by law. Electronically signed by: Rick Adkins M.D. 11/17/2020 5:25 PM
--- NOTE | 2020-11-17 17:42 | CT Scan Report ---
CT ANGIOGRAM OF THE CHEST CLINICAL HISTORY: Atypical/pleuritic chest pain. Hypoxia. COMPARISON STUDY: Chest x-ray dated 11/17/2020. Chest CT dated 11/12/2020 TECHNIQUE: Following the IV administration of 120 cc of Optiray 320, CT angiogram of the chest was pe rformed from the upper abdomen to the thoracic inlet utilizing the pulmonary embolus protocol. Images are reviewed in the axial, sagittal, and coronal planes. 3-D MIPS images are created and assessed. I V contrast was administered without complication. A dose lowering technique was utilized adhering to the principles of ALARA. CT DOSE: 234.56 mGy.cm FINDINGS: Thyroid: Imaged portions of the thyroid gland are normal in size and attenuation. Thoracic aorta: There is atherosclerotic calcification of the thoracic aorta, which is normal in rusty franny and demonstrates standard 3-vessel arch anatomy. No dissection is seen. Pulmonary vasculature: The pulmonary trunk is mildly dilated, measuring up to 3.1 cm in diameter. Thi s suggests pulmonary artery hypertension. There are no filling defects identified in main, lobar, or segmental pulmonary branches to suggest pulmonary embolus. Heart: The heart is normal in size and without pericardial effusion. There are coronary artery calcif ications. Lungs and pleural spaces: Evaluation of the lung parenchyma is compromised by motion artifact. Modera te emphysema is noted. There is dense airspace consolidation throughout the right lower lobe there is also consolidation/atelectasis within the right middle lobe. A small right pleural effusion is noted . Dense dependent consolidation is also seen at the left lung base. The trachea is clear. The right l ower lobe airways are almost completely opacified. Intraluminal debris is also seen within the left l ower lobe airways. Mild patchy airspace opacities are seen in the right upper lobe. Mediastinum: Numerous mildly enlarged mediastinal lymph nodes measure up to 11 mm in short axis. Brigida: Mildly enlarged right hilar nodes measure up to 13 mm in short axis. Axillae: There is no axillary lymphadenopathy. Upper abdomen: Partially visualized upper abdominal viscera is within normal limits. Skeletal structures: The skeletal structures are osteopenic. No lytic or blastic bony lesions are see n. Degenerative change is noted in the shoulders and thoracic spine. Surgical anchors seen in the lef t humeral head. IMPRESSION: 1. There is no evidence of pulmonary embolus in the main, lobar, or segmental pulmonary arteries. 2. There is dense consolidation and atelectasis at both lung bases, right greater than left. This is somewhat similar in appearance to the 11/12/2020 examination and typical for pneumonia/aspiration pneum onitis. Radiographic follow-up to resolution is recommended. 3. A small right pleural effusion has increased from previous. 4. The right lower lobe airways are almost completely opacified with fluid/debris. There is also intr aluminal debris within the left lower lobe airways. Correlate clinically for evidence of aspiration. 5. Emphysema. 6. Mildly enlarged mediastinal and right hilar nodes are likely reactive. ACT 112: Negative or not required by law. Electronically signed by: Rick Adkins M.D. 11/17/2020 5:41 PM
[2020-11-17] MEDS: ATORVASTATIN 20 MG TAB PO SCH (21:36)
[2020-11-18] MEDS: MoRPHine SULFATE 2 MG/ML CARP IV PRN ×5 (02:41→19:57)
[2020-11-18] MEDS: LEVOTHYROXINE SODIUM 75 MCG TABLET PO SCH (06:13)
[2020-11-18] MEDS: lamoTRIgine 25 MG TAB PO SCH ×2 (06:14→17:31)
[2020-11-18 07:10] LABS: Hemoglobin 10.4 g/dL (12.0-16.0); Mean Corpuscular Hemoglobin 32.8 pg (25-34); Mean Corpuscular Hgb Conc 31.5 g/dL (32-36); Mean Corpuscular Volume 104.1 fL (80-100); Mean Platelet Volume 9.7 fL (7.4-10.4); Platelet Count 286 K/uL (130-400); RDW Coefficient of Variation 14.3 % (11.5-14.5); RDW Standard Deviation 54.4 fL (36.4-46.3); Red Blood Count 3.17 M/uL (4.2-5.4); White Blood Count 11.23 K/uL (4.8-10.8)
[2020-11-18] MEDS: ALBUT/IPRATROP 3MG/0.5MG NEB 3 ML VIAL INH PRN (07:13)
[2020-11-18] MEDS: ACETYLCYSTEINE 20% INHAL SOLN 4ML ***DISPENSED BY RESP. INH SCH ×2 (07:13→18:56)
[2020-11-18 07:37] LABS: Basophils # (auto) 0.02 K/uL (0-0.2); Basophils % (auto) 0.2 %; Eosinophils # (auto) 0.14 K/uL (0-0.5); Eosinophils % (auto) 1.2 %; Immature Granulocytes # (auto) 0.66 K/uL (0.00-0.02); Immature Granulocytes % (auto) 5.9 %; Lymphocytes % (auto) 10.7 %; Monocytes # (auto) 0.95 K/uL (0.11-0.59); Monocytes % (auto) 8.5 %; Neutrophils # (auto) 8.26 K/uL (1.4-6.5); Neutrophils % (auto) 73.5 %
[2020-11-18 07:42] LABS: BUN Creatinine Ratio 23.5 (10-20); Creatinine Clr Calc Pharmacy 128.1 ml/min; Est GFR (African American) 129.1 ml/min; Est GFR (Non-African American) 111.4 ml/min; Potassium 4.5 mmol/L (3.5-5.1)
[2020-11-18] MEDS ORDERED: hydrALAZINE HCL 20 MG/ML VIAL ONE (07:43)
[2020-11-18] MEDS: NICOTINE 14 MG/24 HR PATCH TD SCH (09:38)
[2020-11-18] MEDS: PANTOprazole 40 MG TAB PO SCH ×2 (09:38→17:31)
[2020-11-18] MEDS: CYANOCOBALAMIN 500 MCG TABLET (VITAMIN B-12) PO SCH (09:38)
[2020-11-18] MEDS: ASPIRIN 81 MG ECTAB PO SCH (09:38)
[2020-11-18] MEDS: GABAPENTIN 600 MG TAB PO SCH ×3 (09:38→20:48)
[2020-11-18] MEDS: SACCHAROMYCES BOULARDII 250 MG CAP PO SCH (09:39)
[2020-11-18] MEDS: METOPROLOL SUCC 25MG EXT REL TAB PO SCH ×2 (09:39→20:49)
[2020-11-18] MEDS: UMECLIDINIUM/VILANTEROL 62.5/25MCG 7 PUFFS/INHALER INH SCH (09:39)
[2020-11-18] MEDS: dilTIAZem HCL 240 MG CAPCR PO SCH (09:39)
[2020-11-18] MEDS: VENLAFAXINE HCL XR 150 MG CAPXR PO SCH (09:39)
[2020-11-18] MEDS: IRON POLYSACCHARIDE COMPLEX 150 MG CAPSULE PO SCH (09:39)
[2020-11-18] MEDS: guaiFENesin 600 MG TABCR PO SCH ×2 (09:40→20:48)
[2020-11-18] MEDS: ENOXAPARIN INJ 40 MG/0.4 ML SYR SQ SCH (09:40)
[2020-11-18] MEDS: LIDOCAINE 5% 1 PATCH TD SCH (09:40)
[2020-11-18] MEDS: ACETAMINOPHEN 500 MG TAB PO SCH ×3 (09:41→20:47)
[2020-11-18] MEDS: SENNA 8.6 MG TAB PO SCH (11:28)
[2020-11-18] MEDS: cefTRIAXone SODIUM 1,000 MG in DEXTROSE 5% 50 ML IV SCH (17:31)
--- NOTE | 2020-11-18 17:34 | Hospitalist Progress Note ---
Date of Service November 18, 2020 Assessment & Plan (1) Acute respiratory failure: Plan: Acute respiratory with hypoxia Due to likely aspiration pneumonia. Blood culture growing awan-sensitive Klebsiella which could be from pneumonia. In theory, could be from central line infection, but bacteria spc makes this unlikely. - Continue supplemental O2, weaned down to 5 L - continue ceftriaxone 10 total days of treatment-last day of treatment will be 11/22 Sputum culture-normal naren pleuritic pain posteriorly and anteriorly on the right, this is problematic as it is really limiting her ability to take deep breath and cough forcefully CTA chest 11/17 with no evidence of PE, shows bibasilar infiltrates, right > left, right effusion and debris in airway try to control pain with K pad, Morphine PRN Add on prednisone 40 mg daily for anti-inflammatory effect as well as for wheezing try to increase activity with therapy continue flutter valve and incentive spirometer -Make DuoNebs scheduled at her request -Continue Mucomyst nebs twice daily -Continue Mucinex (2) Multifocal pneumonia: Plan: due to aspiration. - As above, continue Rocephin (3) Bacteremia: Plan: Blood culture from 11/12 growing awan-sensitive Klebsiella. Likely due to pneumonia. - Abx as above No repeat cultures have been drawn and not necessary to gram-negative bacteremia Rocephin x 10 days total, last day would be 11/22 (4) Aspiration into lower respiratory tract: Plan: Patient sadly did very poorly with video swallow on 11/13. She aspirated her own saliva and thin liquids which improved with chin tuck. - [employer] recs include: * Easy to chew diet, SLIPPERY (avoid dry, thick, pasty foods) * Aspiration precautions * Complete chin tuck with all liquids (take a small sip, hold in mouth, tuck chin, and then swallow with chin down) * Strict mouth care * GI and ENT consults -> Discussed with GI. No plan for emergent EGD here for the possible diverticulum. 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 Will follow up outpatient with [facility]. CTA chest with debris in airway on right, back pain limiting how forceful she can cough, not a good combination (5) Zenker's diverticulum: Plan: Noted on video swallow on 11/13. 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 follow up with GI in [place] per patient's discretion (6) COPD (chronic obstructive pulmonary disease): Plan: With wheezing today, restart prednisone as above Make DuoNeb scheduled rather than as needed (7) Hypothyroid: Plan: TSH was 1.2 this admission. - Continue levothyroxine 75 mcg daily (8) Hyperlipidemia: Plan: - Continue atorvastatin (9) GERD (gastroesophageal reflux disease): Plan: - Continue pantoprazole PO BID (10) Current smoker: Plan: Nicotine patch Encourage cessation (11) Hyponatremia: Plan: Mild and slightly decreased from previous at 133 SIADH from pain? Versus from pulmonary process? She is euvolemic Check urine sodium and urine osmolality Follow BMP in the morning (12) Anemia: Plan: Hemoglobin mildly low at 10.4, macrocytic with MCV 104 Check B12 and folate in the morning Continue ferrous sulfate (13) HTN (hypertension), benign: Plan: Blood pressures are stable Continue home diltiazem and metoprolol (14) Mood disorder: Plan: Continue home venlafaxine, lamotrigine, gabapentin (15) DVT prophylaxis: Plan: Lovenox 40 mg SQ daily Plan: Disposition-continued stay in PCU Admission and Anticipated Discharge Date Admission Date: November 12, 2020 Subjective Patient continues to complain of constant pain in the right side of her chest through to her back that is worse with deep inspiration. She is asking about increasing the dose of the morphine. She also feels that the nebulizer treatments help her and she wants me to make them scheduled so that she does not have to ask for them to be given. She repeatedly talks about the pain in the right side of the chest. She feels like she has stuff to cough up but cannot get it up. Want something to break it up. She does not like the smell of the Mucomyst but says she is willing to continue doing it When asked about her appetite, she reports that it was better today "because they actually had food that was good." Telemetry with normal sinus rhythm with rates in the 80s to 90s Review of Systems Review of Systems: All systems reviewed & are unremarkable except as noted in HPI & below Physical Exam Constitutional: WD/WN, vitals as above Eyes: + anicteric sclerae Neck: trachea midline, no thyromegaly Respiratory: normal respiratory effort Auscultation: + crackles (In right middle and lower lung garcia) and + wheezes (In bilateral upper lung garcia) Cardiovascular: RRR, no murmur, no edema Chest (Breasts): Chest: normal inspection of chest Gastrointestinal (Abdomen): normal bowel sounds, soft, nontender, no hepatosplenomegaly Musculoskeletal: Extremities: extremities normal to inspection; no cyanosis and no clubbing Skin: no rashes, warm and dry Neurologic: moves all extremities and awake; no focal motor deficits Psychiatric: Orientation: alert and oriented x 3 Affect: + flat affect Lymphatic: no lymphedema Results & Data Results & Data ([facility]) Vital Signs (Past 12 Hours) Vital Signs Temp Pulse Pulse Resp BP Pulse Ox 11/18/20 15:17 36.8 C 81 18 108/66 96 11/18/20 14:49 84 11/18/20 11:01 36.9 C 109 H 19 124/78 91 11/18/20 07:31 91 H 11/18/20 07:13 103 H 20 90 11/18/20 07:08 37.3 C 98 H 18 117/75 89 L Laboratory Results 11/18/20 11/18/20 Range/Units 06:55 06:55 WBC 11.23 H (4.8-10.8) K/uL RBC 3.17 L (4.2-5.4) M/uL Hgb 10.4 L (12.0-16.0) g/dL Hct 33.0 L (37-47) % MCV 104.1 H (80-100) fL MCH 32.8 (25-34) pg MCHC 31.5 L (32-36) g/dL RDW Std Deviation 54.4 H (36.4-46.3) fL RDW Coeff of [place] 14.3 (11.5-14.5) % Plt Count 286 (130-400) K/uL MPV 9.7 (7.4-10.4) fL Immature Gran % (Auto) 5.9 % Neut % (Auto) 73.5 % Lymph % (Auto) 10.7 % [place] % (Auto) 8.5 % Eos % (Auto) 1.2 % Baso % (Auto) 0.2 % Neut # (Auto) 8.26 H (1.4-6.5) K/uL Lymph # (Auto) 1.20 (1.2-3.4) K/uL [place] # (Auto) 0.95 H (0.11-0.59) K/uL Eos # (Auto) 0.14 (0-0.5) K/uL Baso # (Auto) 0.02 (0-0.2) K/uL Immature Gran # (Auto) 0.66 H (0.00-0.02) K/uL Sodium 133 L (136-145) mmol/L Potassium 4.5 (3.5-5.1) mmol/L Chloride 97 L (98-107) mmol/L Carbon Dioxide 31 (21-32) mmol/L Anion Gap 5.0 (3-11) BUN 10 (7-18) mg/dl Creatinine 0.42 L (0.6-1.2) mg/dl Est Cr Clr Drug Dosing 128.1 ml/min Est GFR ( Amer) 129.1 ml/min Est GFR (Non-Af Amer) 111.4 ml/min BUN/Creatinine Ratio 23.5 H (10-20) Glucose 89 (70-99) mg/dl Calcium 9.0 (8.5-10.1) mg/dl PG Care Time/CCT Total # of Minutes Spent Total Time Spent with Patient: Total time spent is greater than 50% in coordination of care (as documented) at patient's floor/unit and/or counseling patient: Coding Level of Care Code 66324 Subseq Hosp Care Lvl 3 Diagnoses Acute respiratory failure J96.01; J96.02 Respiratory failure complication: hypoxia and hypercapnia Multifocal pneumonia J18.9 Bacteremia R78.81 Aspiration into lower respiratory tract T17.800A Zenker's diverticulum K22.5 COPD (chronic obstructive pulmonary disease) J44.9 COPD type: unspecified COPD Hypothyroid E03.9 Hyperlipidemia E78.5 GERD (gastroesophageal reflux disease) K21.9 DVT prophylaxis Z29.9 Current smoker F17.200 Hyponatremia E87.1 Anemia D64.9 HTN (hypertension), benign I10 Mood disorder F39 (1) Acute respiratory failure Respiratory failure complication: hypoxia and hypercapnia Qualified Code(s): J96.01 - Acute respiratory failure with hypoxia; J96.02 - Acute respiratory failure with hypercapnia (2) COPD (chronic obstructive pulmonary disease) COPD type: unspecified COPD Qualified Code(s): J44.9 - Chronic obstructive pulmonary disease, unspecified
[2020-11-18] MEDS: predniSONE 20 MG TAB PO SCH (18:04)
[2020-11-18] MEDS: ALBUT/IPRATROP 3MG/0.5MG NEB 3 ML VIAL INH SCH (18:56)
[2020-11-18] MEDS: ATORVASTATIN 20 MG TAB PO SCH (20:48)
[2020-11-19] MEDS: MoRPHine SULFATE 2 MG/ML CARP IV PRN ×4 (00:02→17:51)
[2020-11-19] MEDS: ALBUT/IPRATROP 3MG/0.5MG NEB 3 ML VIAL INH SCH ×4 (00:10→19:12)
[2020-11-19] MEDS: LEVOTHYROXINE SODIUM 75 MCG TABLET PO SCH (06:50)
[2020-11-19] MEDS: lamoTRIgine 25 MG TAB PO SCH ×2 (06:50→17:47)
[2020-11-19] MEDS: ACETYLCYSTEINE 20% INHAL SOLN 4ML ***DISPENSED BY RESP. INH SCH ×2 (08:03→19:12)
[2020-11-19] MEDS: GABAPENTIN 600 MG TAB PO SCH ×3 (08:20→20:50)
[2020-11-19] MEDS: PANTOprazole 40 MG TAB PO SCH ×2 (08:20→17:47)
[2020-11-19] MEDS: predniSONE 20 MG TAB PO SCH (08:20)
[2020-11-19] MEDS: SACCHAROMYCES BOULARDII 250 MG CAP PO SCH (08:20)
[2020-11-19] MEDS: IRON POLYSACCHARIDE COMPLEX 150 MG CAPSULE PO SCH (08:20)
[2020-11-19] MEDS: VENLAFAXINE HCL XR 150 MG CAPXR PO SCH (08:20)
[2020-11-19] MEDS: NICOTINE 14 MG/24 HR PATCH TD SCH (08:20)
[2020-11-19] MEDS: dilTIAZem HCL 240 MG CAPCR PO SCH (08:20)
[2020-11-19] MEDS: ACETAMINOPHEN 500 MG TAB PO SCH ×3 (08:21→20:49)
[2020-11-19] MEDS: UMECLIDINIUM/VILANTEROL 62.5/25MCG 7 PUFFS/INHALER INH SCH (08:21)
[2020-11-19] MEDS: CYANOCOBALAMIN 500 MCG TABLET (VITAMIN B-12) PO SCH (08:21)
[2020-11-19] MEDS: ASPIRIN 81 MG ECTAB PO SCH (08:21)
[2020-11-19] MEDS: LIDOCAINE 5% 1 PATCH TD SCH (08:21)
[2020-11-19] MEDS: METOPROLOL SUCC 25MG EXT REL TAB PO SCH ×2 (08:21→20:47)
[2020-11-19] MEDS: guaiFENesin 600 MG TABCR PO SCH ×2 (08:21→20:51)
[2020-11-19] MEDS: ENOXAPARIN INJ 40 MG/0.4 ML SYR SQ SCH (08:22)
[2020-11-19 08:36] LABS: BUN Creatinine Ratio 36.7 (10-20); Calcium 9.3 mg/dl (8.5-10.1); Creatinine Clr Calc Pharmacy 117.8 ml/min; Est GFR (African American) 129.1 ml/min; Est GFR (Non-African American) 111.4 ml/min; Magnesium 1.5 mg/dl (1.8-2.4); Potassium 4.2 mmol/L (3.5-5.1)
[2020-11-19] MEDS: SENNA 8.6 MG TAB PO SCH (11:43)
[2020-11-19] MEDS: MAGNESIUM SULFATE / D5W 1 GM/100 ML BAG IV SCH ×2 (12:29→14:32)
[2020-11-19] MEDS: cefTRIAXone SODIUM 1,000 MG in DEXTROSE 5% 50 ML IV SCH (17:49)
--- NOTE | 2020-11-19 18:44 | Hospitalist Progress Note ---
Date of Service November 19, 2020 Assessment & Plan (1) Acute respiratory failure: Plan: Acute respiratory with hypoxia Due to likely aspiration pneumonia. Blood culture growing awan-sensitive Klebsiella which could be from pneumonia. - Continue supplemental O2, weaned down to 5 L - continue ceftriaxone 10 total days of treatment-last day of treatment will be 11/22 Sputum culture-normal naren pleuritic pain posteriorly and anteriorly on the right, this is problematic as it is really limiting her ability to take deep breath and cough forcefully- improving with restarting prednisone CTA chest 11/17 with no evidence of PE, shows bibasilar infiltrates, right > left, right effusion and debris in airway try to control pain with K pad, transition from morphine to oxycodone prn Continue on prednisone 40 mg daily for anti-inflammatory effect as well as for wheezing and give taper over 2 weeks try to increase activity with therapy continue flutter valve and incentive spirometer -continue DuoNebs scheduled at her request -Continue Mucomyst nebs twice daily -Continue Mucinex (2) Multifocal pneumonia: Plan: due to aspiration. - As above, continue Rocephin (3) Bacteremia: Plan: Blood culture from 11/12 growing awan-sensitive Klebsiella. Likely due to pneumonia. - Abx as above No repeat cultures have been drawn and not necessary for gram-negative bacteremia Rocephin x 10 days total, last day would be 11/22 (4) Aspiration into lower respiratory tract: Plan: Patient sadly did very poorly with video swallow on 11/13. She aspirated her own saliva and thin liquids which improved with chin tuck. - INFUSION NURSE recs include: * Easy to chew diet, SLIPPERY (avoid dry, thick, pasty foods) * Aspiration precautions * Complete chin tuck with all liquids (take a small sip, hold in mouth, tuck chin, and then swallow with chin down) * Strict mouth care * GI and ENT consults -> Discussed with GI. No plan for emergent EGD here for the possible diverticulum. 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 Will follow up outpatient with [facility]. CTA chest with debris in airway on right, back pain limiting how forceful she can cough, not a good combination (5) Zenker's diverticulum: Plan: Noted on video swallow on 11/13. 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 follow up with GI in [place] per patient's discretion (6) COPD (chronic obstructive pulmonary disease): Plan: With wheezing and pleuritic pain, restarted prednisone as above and helping continue DuoNeb scheduled (7) Hypothyroid: Plan: TSH was 1.2 this admission. - Continue levothyroxine 75 mcg daily (8) Hyperlipidemia: Plan: - Continue atorvastatin (9) GERD (gastroesophageal reflux disease): Plan: - Continue pantoprazole PO BID (10) Current smoker: Plan: Nicotine patch Encourage cessation (11) Hyponatremia: Plan: Mild and slightly decreased from previous at 132 SIADH from pain? Versus from pulmonary process? She is euvolemic Checked urine sodium 35 and urine osmolality 407, consistent with SIADH Follow BMP in the morning fluid restrict to 1500mL/day (12) Anemia: Plan: Hemoglobin mildly low at 10.4, macrocytic with MCV 104 Checked B12 and folate -normal Continue ferrous sulfate (13) HTN (hypertension), benign: Plan: Blood pressures are stable Continue home diltiazem and metoprolol (14) Mood disorder: Plan: Tearful, worsening depression, no SI Declines Psych consult Needs outpt Psychiatry follow up increase Effexor to 225mg daily Continue home lamotrigine, gabapentin (15) Hypomagnesemia: Plan: replace with 2 grams IV mag sulfate follow level in AM (16) DVT prophylaxis: Plan: Lovenox 40 mg SQ daily Dispo-may be stable for dc to rehab in next 1-2 days Admission and Anticipated Discharge Date Admission Date: November 12, 2020 Anticipated date of discharge: 11/20/20 Subjective Pt feels chest pain is improved wih restarting prednisone and insists on staying on prednisone for "a while." She reports constipation but typically has had chronic diarrhea. She continues to take IV morphine every 4 hours. Still on 5LNC. Was OOB to bathroom and washed her hair today, was CORTEZ. Is tearful at times describing her depression, grandchildren are in foster care. Denies SI. Does not see Psychiatry and declines for Psych consult here. Is agreeable to increasing her Effexor. Tele with NSR, rates 80-90s Review of Systems Review of Systems: All systems reviewed & are unremarkable except as noted in HPI & below Physical Exam Constitutional: WD/WN, vitals as above Eyes: + anicteric sclerae Neck: trachea midline, no thyromegaly Respiratory: normal respiratory effort Auscultation: + crackles (In right middle and lower lung garcia); no wheezes Cardiovascular: RRR, no murmur, no edema Chest (Breasts): Chest: normal inspection of chest Gastrointestinal (Abdomen): normal bowel sounds, soft, nontender, no hepatosplenomegaly Musculoskeletal: Extremities: extremities normal to inspection; no cyanosis and no clubbing Skin: no rashes, warm and dry Neurologic: moves all extremities and awake; no focal motor deficits Psychiatric: Orientation: alert and oriented x 3 Affect: + depressed affect and + tearful affect Mood: + depressed mood and + irritable mood Suicidal Thoughts: denies suicidal thoughts Lymphatic: no lymphedema Results & Data Results & Data ([facility]) Vital Signs (Past 12 Hours) Vital Signs Temp Pulse Pulse Resp BP BP Pulse Ox 11/19/20 16:04 36.5 C 85 85 19 111/69 95 11/19/20 13:19 80 18 92 11/19/20 10:48 36.6 C 97 H 19 113/64 94 11/19/20 08:03 36.9 C 93 H 20 109/67 94 11/19/20 07:17 80 11/19/20 07:10 90 18 94 Laboratory Results 11/19/20 11/19/20 11/18/20 Range/Units 07:23 07:23 23:09 Sodium 132 L (136-145) mmol/L Potassium 4.2 (3.5-5.1) mmol/L Chloride 99 (98-107) mmol/L Carbon Dioxide 33 H (21-32) mmol/L Anion Gap 0 L (3-11) BUN 16 D (7-18) mg/dl Creatinine 0.42 L (0.6-1.2) mg/dl Est Cr Clr Drug Dosing 117.8 ml/min Est GFR ( Amer) 129.1 ml/min Est GFR (Non-Af Amer) 111.4 ml/min BUN/Creatinine Ratio 36.7 H (10-20) Glucose 122 H (70-99) mg/dl Calcium 9.3 (8.5-10.1) mg/dl Magnesium 1.5 L (1.8-2.4) mg/dl Vitamin B12 1393 H (193-986) pg/ml Folate 10.00 (>5.38) ng/ml Urine Osmolality (500-800) mOsm/kg Ur Random Sodium 35 mmol/L 11/18/20 Range/Units 23:09 Sodium (136-145) mmol/L Potassium (3.5-5.1) mmol/L Chloride (98-107) mmol/L Carbon Dioxide (21-32) mmol/L Anion Gap (3-11) BUN (7-18) mg/dl Creatinine (0.6-1.2) mg/dl Est Cr Clr Drug Dosing ml/min Est GFR ( Amer) ml/min Est GFR (Non-Af Amer) ml/min BUN/Creatinine Ratio (10-20) Glucose (70-99) mg/dl Calcium (8.5-10.1) mg/dl Magnesium (1.8-2.4) mg/dl Vitamin B12 (193-986) pg/ml Folate (>5.38) ng/ml Urine Osmolality 407 L (500-800) mOsm/kg Ur Random Sodium mmol/L PG Care Time/CCT Total # of Minutes Spent Total Time Spent with Patient: Total time spent is greater than 50% in coordination of care (as documented) at patient's floor/unit and/or counseling patient: Coding Level of Care Code 88258 Subseq Hosp Care Lvl 3 Diagnoses Acute respiratory failure J96.01; J96.02 Respiratory failure complication: hypoxia and hypercapnia Multifocal pneumonia J18.9 Bacteremia R78.81 Aspiration into lower respiratory tract T17.800A Zenker's diverticulum K22.5 COPD (chronic obstructive pulmonary disease) J44.9 COPD type: unspecified COPD Hypothyroid E03.9 Hyperlipidemia E78.5 GERD (gastroesophageal reflux disease) K21.9 Current smoker F17.200 Hyponatremia E87.1 Anemia D64.9 HTN (hypertension), benign I10 Mood disorder F39 DVT prophylaxis Z29.9 Hypomagnesemia E83.42 (1) Acute respiratory failure Respiratory failure complication: hypoxia and hypercapnia Qualified Code(s): J96.01 - Acute respiratory failure with hypoxia; J96.02 - Acute respiratory failure with hypercapnia (2) COPD (chronic obstructive pulmonary disease) COPD type: unspecified COPD Qualified Code(s): J44.9 - Chronic obstructive pulmonary disease, unspecified
[2020-11-19] MEDS: ATORVASTATIN 20 MG TAB PO SCH (20:48)
[2020-11-19] MEDS: oxyCODONE HCL IR 5 MG TAB (IMMEDIATE RELEASE) PO PRN (21:17)
[2020-11-20] MEDS: ALBUT/IPRATROP 3MG/0.5MG NEB 3 ML VIAL INH SCH ×4 (00:16→19:25)
[2020-11-20] MEDS: oxyCODONE HCL IR 5 MG TAB (IMMEDIATE RELEASE) PO PRN ×4 (02:08→22:06)
[2020-11-20] MEDS: LEVOTHYROXINE SODIUM 75 MCG TABLET PO SCH (06:06)
[2020-11-20] MEDS: lamoTRIgine 25 MG TAB PO SCH ×2 (06:06→19:44)
[2020-11-20] MEDS: ACETYLCYSTEINE 20% INHAL SOLN 4ML ***DISPENSED BY RESP. INH SCH ×2 (07:04→19:25)
[2020-11-20 08:28] LABS: BUN Creatinine Ratio 36.2 (10-20); Calcium 9.1 mg/dl (8.5-10.1); Creatinine Clr Calc Pharmacy 92.9 ml/min; Est GFR (African American) 116.1 ml/min; Est GFR (Non-African American) 100.2 ml/min; Magnesium 1.2 mg/dl (1.8-2.4); Potassium 4.1 mmol/L (3.5-5.1)
[2020-11-20] MEDS: SACCHAROMYCES BOULARDII 250 MG CAP PO SCH (08:28)
[2020-11-20] MEDS: ASPIRIN 81 MG ECTAB PO SCH (08:28)
[2020-11-20] MEDS: CYANOCOBALAMIN 500 MCG TABLET (VITAMIN B-12) PO SCH (08:28)
[2020-11-20] MEDS: PANTOprazole 40 MG TAB PO SCH ×2 (08:28→16:50)
[2020-11-20] MEDS: predniSONE 20 MG TAB PO SCH (08:28)
[2020-11-20] MEDS: GABAPENTIN 600 MG TAB PO SCH ×3 (08:29→21:42)
[2020-11-20] MEDS: ACETAMINOPHEN 500 MG TAB PO SCH ×3 (08:29→21:43)
[2020-11-20] MEDS: VENLAFAXINE HCL XR 75 MG CAPXR PO SCH (08:29)
[2020-11-20] MEDS: dilTIAZem HCL 240 MG CAPCR PO SCH (08:29)
[2020-11-20] MEDS: METOPROLOL SUCC 25MG EXT REL TAB PO SCH ×2 (08:29→21:42)
[2020-11-20] MEDS: guaiFENesin 600 MG TABCR PO SCH ×2 (08:29→21:43)
[2020-11-20] MEDS: LIDOCAINE 5% 1 PATCH TD SCH (08:30)
[2020-11-20] MEDS: UMECLIDINIUM/VILANTEROL 62.5/25MCG 7 PUFFS/INHALER INH SCH (08:30)
[2020-11-20] MEDS: ENOXAPARIN INJ 40 MG/0.4 ML SYR SQ SCH (08:30)
[2020-11-20] MEDS: IRON POLYSACCHARIDE COMPLEX 150 MG CAPSULE PO SCH (08:30)
[2020-11-20] MEDS: NICOTINE 14 MG/24 HR PATCH TD SCH (08:30)
[2020-11-20] MEDS: MAGNESIUM SULFATE / D5W 1 GM/100 ML BAG IV SCH ×4 (10:10→17:27)
[2020-11-20] MEDS: SENNA 8.6 MG TAB PO SCH (11:47)
[2020-11-20] MEDS: cefTRIAXone SODIUM 1,000 MG in DEXTROSE 5% 50 ML IV SCH (16:50)
[2020-11-20] MEDS: ATORVASTATIN 20 MG TAB PO SCH (21:42)
--- NOTE | 2020-11-20 22:11 | Hospitalist Progress Note ---
Date of Service November 20, 2020 Assessment & Plan (1) Acute respiratory failure: Plan: Acute respiratory with hypoxia Due to likely aspiration pneumonia. Blood culture growing awan-sensitive Klebsiella which could be from pneumonia. - Continue supplemental O2, weaned down to 4L - continue ceftriaxone 10 total days of treatment-last day of treatment will be 11/22 Sputum culture-normal naren Moving air better today and getting a lot of mucus up with cough Pleuritic chest pain on the right is now much improved with pain control and now she is able to cough more forcefully CTA chest 11/17 with no evidence of PE, shows bibasilar infiltrates, right > left, right effusion and debris in airway Continue on prednisone 40 mg daily for anti-inflammatory effect as well as for wheezing and give taper over 2 weeks try to increase activity with therapy -Continue oxycodone as needed continue flutter valve and incentive spirometer -continue DuoNebs scheduled at her request -Continue Mucomyst nebs twice daily -Continue Mucinex (2) Multifocal pneumonia: Plan: due to aspiration. - As above, continue Rocephin Will need repeat chest x-ray in 4 to 6 weeks to ensure resolution (3) Bacteremia: Plan: Blood culture from 11/12 growing awan-sensitive Klebsiella. Likely due to pneumonia. - Abx as above No repeat cultures have been drawn and not necessary for gram-negative bacteremia Rocephin x 10 days total, last day would be 11/22 (4) Aspiration into lower respiratory tract: Plan: Patient sadly did very poorly with video swallow on 11/13. She aspirated her own saliva and thin liquids which improved with chin tuck. - COMPLIANCE FIELD TECHNICIAN recs include: * Easy to chew diet, SLIPPERY (avoid dry, thick, pasty foods) * Aspiration precautions * Complete chin tuck with all liquids (take a small sip, hold in mouth, tuck chin, and then swallow with chin down) * Strict mouth care * GI and ENT consults -> Discussed with GI. No plan for emergent EGD here for the possible diverticulum. 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 Will follow up outpatient with [facility]. CTA chest with debris in airway on right, back pain limiting how forceful she can cough, not a good combination-however, now improving and able to cough up plenty of sputum on 11/20 Will need speech therapy at rehab (5) Zenker's diverticulum: Plan: Noted on video swallow on 11/13. 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 follow up with GI in [place] per patient's discretion (6) COPD (chronic obstructive pulmonary disease): Plan: With wheezing and pleuritic pain, restarted prednisone as above and helping continue DuoNeb scheduled (7) Hypothyroid: Plan: TSH was 1.2 this admission. - Continue levothyroxine 75 mcg daily (8) Hyperlipidemia: Plan: - Continue atorvastatin (9) GERD (gastroesophageal reflux disease): Plan: - Continue pantoprazole PO BID (10) Current smoker: Plan: Nicotine patch Encourage cessation (11) Hyponatremia: Plan: Mild and now resolved, sodium up to 136 today after fluid restriction SIADH from pain? Versus from pulmonary process? She is euvolemic Checked urine sodium 35 and urine osmolality 407, consistent with SIADH Follow BMP in the morning Continue fluid restrict to 1500mL/day (12) Anemia: Plan: Hemoglobin mildly low at 10.4, macrocytic with MCV 104 Checked B12 and folate -normal Continue ferrous sulfate (13) HTN (hypertension), benign: Plan: Blood pressures are stable Continue home diltiazem and metoprolol (14) Mood disorder: Plan: Tearful at times, worsening depression, no SI Declines Psych consult Needs outpt Psychiatry follow up increased Effexor to 225mg daily Continue home lamotrigine, gabapentin (15) Hypomagnesemia: Plan: Severely low again today at 1.2 Replace with 4 g of IV magnesium sulfate Follow magnesium level in the morning (16) Foot drop, bilateral: Plan: With bilateral foot drop since her critical care stay in the last month 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 Pain in the right side the chest is much improved. She was able to sleep quite a bit through the day to catch up on sleep and is happy about that. The oxycodone is helping with her pain. She is anxious also about getting to rehab and also wants to try to correct her bilateral foot drop that she has had since her ICU stay last month. Telemetry with normal sinus rhythm with rates in the 70s to 80s, PACs. Review of Systems Review of Systems: All systems reviewed & are unremarkable except as noted in HPI & below Physical Exam Constitutional: WD/WN, vitals as above Eyes: + anicteric sclerae Neck: trachea midline, no thyromegaly Respiratory: normal respiratory effort Auscultation: + crackles (In right middle and lower lung garcia), + rhonchi (Right middle lung field) and + wheezes (Some upper airway wheezes bilaterally); no diminished lung sounds (Improved air movement throughout today) Cardiovascular: RRR, no murmur, no edema Chest (Breasts): Chest: normal inspection of chest Gastrointestinal (Abdomen): normal bowel sounds, soft, nontender, no hepatosplenomegaly Musculoskeletal: Extremities: extremities normal to inspection; no cyanosis and no clubbing Skin: no rashes, warm and dry Neurologic: moves all extremities and awake; no focal motor deficits Psychiatric: Orientation: alert and oriented x 3 Lymphatic: no lymphedema Results & Data Results & Data ([facility]) Vital Signs (Past 12 Hours) Vital Signs Temp Pulse Pulse Resp BP BP Pulse Ox 11/20/20 21:00 91 11/20/20 20:51 36.8 C 84 24 132/78 88 L 11/20/20 19:29 74 20 96 11/20/20 16:55 80 11/20/20 15:48 36.7 C 88 16 109/66 95 11/20/20 12:47 84 18 93 11/20/20 12:32 36.8 C 72 18 124/60 97 Laboratory Results 11/18/20 06:55 11/20/20 07:26 Magnesium 1.2 PG Care Time/CCT Total # of Minutes Spent Total Time Spent with Patient: Total time spent is greater than 50% in coordination of care (as documented) at patient's floor/unit and/or counseling patient: Coding Level of Care Code 94674 Subseq Hosp Care Lvl 3 Diagnoses Acute respiratory failure J96.01; J96.02 Respiratory failure complication: hypoxia and hypercapnia Multifocal pneumonia J18.9 Bacteremia R78.81 Aspiration into lower respiratory tract T17.800A Zenker's diverticulum K22.5 COPD (chronic obstructive pulmonary disease) J44.9 COPD type: unspecified COPD Hypothyroid E03.9 Hyperlipidemia E78.5 GERD (gastroesophageal reflux disease) K21.9 Current smoker F17.200 Hyponatremia E87.1 Anemia D64.9 HTN (hypertension), benign I10 Mood disorder F39 Hypomagnesemia E83.42 DVT prophylaxis Z29.9 Foot drop, bilateral M21.371; M21.372 (1) Acute respiratory failure Respiratory failure complication: hypoxia and hypercapnia Qualified Code(s): J96.01 - Acute respiratory failure with hypoxia; J96.02 - Acute respiratory failure with hypercapnia (2) COPD (chronic obstructive pulmonary disease) COPD type: unspecified COPD Qualified Code(s): J44.9 - Chronic obstructive pulmonary disease, unspecified
[2020-11-21] MEDS: ALBUT/IPRATROP 3MG/0.5MG NEB 3 ML VIAL INH SCH ×4 (00:18→19:16)
[2020-11-21] MEDS: oxyCODONE HCL IR 5 MG TAB (IMMEDIATE RELEASE) PO PRN ×4 (03:16→18:09)
[2020-11-21] MEDS: LEVOTHYROXINE SODIUM 75 MCG TABLET PO SCH (05:00)
[2020-11-21] MEDS: lamoTRIgine 25 MG TAB PO SCH ×2 (06:07→18:00)
[2020-11-21] MEDS: ACETYLCYSTEINE 20% INHAL SOLN 4ML ***DISPENSED BY RESP. INH SCH ×2 (06:56→19:16)
[2020-11-21 07:22] LABS: Calcium 9.1 mg/dl (8.5-10.1); Creatinine Clr Calc Pharmacy 114.6 ml/min; Est GFR (African American) 124.4 ml/min; Est GFR (Non-African American) 107.4 ml/min; Magnesium 1.7 mg/dl (1.8-2.4)
[2020-11-21] MEDS: dilTIAZem HCL 240 MG CAPCR PO SCH (07:51)
[2020-11-21] MEDS: METOPROLOL SUCC 25MG EXT REL TAB PO SCH ×2 (07:53→19:55)
[2020-11-21] MEDS: SACCHAROMYCES BOULARDII 250 MG CAP PO SCH (07:54)
[2020-11-21] MEDS: ASPIRIN 81 MG ECTAB PO SCH (07:54)
[2020-11-21] MEDS: VENLAFAXINE HCL XR 75 MG CAPXR PO SCH (07:54)
[2020-11-21] MEDS: PANTOprazole 40 MG TAB PO SCH ×2 (07:54→16:15)
[2020-11-21] MEDS: IRON POLYSACCHARIDE COMPLEX 150 MG CAPSULE PO SCH (07:55)
[2020-11-21] MEDS: predniSONE 20 MG TAB PO SCH (07:55)
[2020-11-21] MEDS: GABAPENTIN 600 MG TAB PO SCH ×3 (07:56→19:54)
[2020-11-21] MEDS: ACETAMINOPHEN 500 MG TAB PO SCH ×3 (07:57→19:54)
[2020-11-21] MEDS: ENOXAPARIN INJ 40 MG/0.4 ML SYR SQ SCH (07:58)
[2020-11-21] MEDS: NICOTINE 14 MG/24 HR PATCH TD SCH (07:58)
[2020-11-21] MEDS: CYANOCOBALAMIN 500 MCG TABLET (VITAMIN B-12) PO SCH (07:58)
[2020-11-21] MEDS: LIDOCAINE 5% 1 PATCH TD SCH (07:59)
[2020-11-21] MEDS: UMECLIDINIUM/VILANTEROL 62.5/25MCG 7 PUFFS/INHALER INH SCH (07:59)
[2020-11-21] MEDS: guaiFENesin 600 MG TABCR PO SCH ×2 (07:59→19:55)
[2020-11-21] MEDS ORDERED: MAGNESIUM SULFATE / D5W 1 GM/100 ML BAG IV ONE (10:30)
[2020-11-21] MEDS: SENNA 8.6 MG TAB PO SCH (11:32)
[2020-11-21] MEDS: cefTRIAXone SODIUM 1,000 MG in DEXTROSE 5% 50 ML IV SCH (16:15)
[2020-11-21] MEDS: ATORVASTATIN 20 MG TAB PO SCH (19:56)
--- NOTE | 2020-11-21 22:24 | Hospitalist Progress Note ---
Date of Service November 21, 2020 Assessment & Plan (1) Acute respiratory failure: Plan: Acute respiratory with hypoxia Due to likely aspiration pneumonia. Blood culture growing awan-sensitive Klebsiella which could be from pneumonia. - Continue supplemental O2, weaned down to 3L - continue ceftriaxone 10 total days of treatment-last day of treatment will be 11/22 Sputum culture-normal naren Moving air better now and getting a lot of mucus up with cough Pleuritic chest pain on the right is now much improved with pain control and now she is able to cough more forcefully CTA chest 11/17 with no evidence of PE, shows bibasilar infiltrates, right > left, right effusion and debris in airway Continue on prednisone 40 mg daily for anti-inflammatory effect as well as for wheezing and give taper over 2 weeks-taper down by 10 mg every 3 days-decrease to 30 mg for tomorrow try to increase activity with therapy -Continue oxycodone as needed continue flutter valve and incentive spirometer -continue DuoNebs scheduled at her request -Continue Mucomyst nebs twice daily -Continue Mucinex (2) Multifocal pneumonia: Plan: due to aspiration. - As above, continue Rocephin Will need repeat chest x-ray in 4 to 6 weeks to ensure resolution (3) Bacteremia: Plan: Blood culture from 11/12 growing awan-sensitive Klebsiella. Likely due to p neumonia. - Abx as above No repeat cultures have been drawn and not necessary for gram-negative bacteremia Rocephin x 10 days total, last day would be 11/22 (4) Aspiration into lower respiratory tract: Plan: Patient sadly did very poorly with video swallow on 11/13. She aspirated her own saliva and thin liquids which improved with chin tuck. - SALES PROCESS MANAGER recs include: * Easy to chew diet, SLIPPERY (avoid dry, thick, pasty foods) * Aspiration precautions * Complete chin tuck with all liquids (take a small sip, hold in mouth, tuck chin, and then swallow with chin down) * Strict mouth care * GI and ENT consults -> Discussed with GI. No plan for emergent EGD here for the possible diverticulum. 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 Will follow up outpatient with [facility]. CTA chest with debris in airway on right, back pain limiting how forceful she can cough, not a good combination-however, now improving and able to cough up plenty of sputum on 11/20 Will need speech therapy at rehab (5) Zenker's diverticulum: Plan: Noted on video swallow on 11/13. 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 follow up with GI in [place] per patient's discretion (6) COPD (chronic obstructive pulmonary disease): Plan: With wheezing and pleuritic pain, restarted prednisone as above and helping continue DuoNeb scheduled (7) Hypothyroid: Plan: TSH was 1.2 this admission. - Continue levothyroxine 75 mcg daily (8) Hyperlipidemia: Plan: - Continue atorvastatin (9) GERD (gastroesophageal reflux disease): Plan: - Continue pantoprazole PO BID (10) Current smoker: Plan: Nicotine patch Encourage cessation (11) Hyponatremia: Plan: Mild and now resolved/improved, sodium up to 134 after fluid restriction SIADH from pain? Versus from pulmonary process? She is euvolemic Checked urine sodium 35 and urine osmolality 407, consistent with SIADH Patient very upset about the fluid restriction Continue fluid restrict but can increase amount to 1800 mL/day Liberalize salt in diet-change from heart healthy regular diet (12) Anemia: Plan: Hemoglobin mildly low at 10.4, macrocytic with MCV 104 Checked B12 and folate -normal Continue ferrous sulfate (13) HTN (hypertension), benign: Plan: Blood pressures are stable Continue home diltiazem and metoprolol (14) Mood disorder: Plan: Tearful at times, worsening depression, no SI Also with anger and irritability frequently Declines Psych consult Needs outpt Psychiatry follow up increased Effexor to 225mg daily Continue home lamotrigine, gabapentin (15) Hypomagnesemia: Plan: Severely low and now improved with replacement Mildly low today Give 1 g IV magnesium sulfate (16) Foot drop, bilateral: Plan: With bilateral foot drop since her critical care stay in the last month 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 She is very upset about the fluid restriction and at least is requesting increased salt in her diet which I am agreeable to. She moved her bowels twice and the second 1 was more loose and now she is worried she will get her chronic diarrhea back. She would like the laxative stopped. When she started swearing at me using the "F" word, I told her that I was going to leave the room as I did not appreciate the disrespect she was showing to me. Review of Systems Review of Systems: All systems reviewed & are unremarkable except as noted in HPI & below Physical Exam Constitutional: WD/WN, vitals as above Eyes: + anicteric sclerae Neck: trachea midline, no thyromegaly Respiratory: normal respiratory effort Auscultation: + crackles (In right middle and lower lung garcia), + rhonchi (Right middle lung field) and + wheezes (Some upper airway wheezes bilaterally); no diminished lung sounds (Improved air movement throughout today) Cardiovascular: RRR, no murmur, no edema Chest (Breasts): Chest: normal inspection of chest Gastrointestinal (Abdomen): normal bowel sounds, soft, nontender, no hepatosplenomegaly Musculoskeletal: Extremities: extremities normal to inspection; no cyanosis and no clubbing Skin: no rashes, warm and dry Neurologic: moves all extremities and awake; no focal motor deficits Psychiatric: Orientation: alert Affect: + angry affect Mood: + irritable mood Lymphatic: no lymphedema Results & Data Results & Data ([facility]) Vital Signs (Past 12 Hours) Vital Signs Temp Pulse Pulse Resp BP Pulse Ox 11/21/20 22:08 36.7 C 88 18 138/79 96 11/21/20 19:49 92 H 126/83 11/21/20 19:19 92 H 20 99 11/21/20 16:29 36.4 C L 85 17 129/71 93 11/21/20 12:26 92 H 20 85 L Laboratory Results 11/21/20 Range/Units 06:12 Sodium 134 L (136-145) mmol/L Potassium 4.0 (3.5-5.1) mmol/L Chloride 100 (98-107) mmol/L Carbon Dioxide 29 (21-32) mmol/L Anion Gap 5.0 (3-11) BUN 20 H (7-18) mg/dl Creatinine 0.47 L (0.6-1.2) mg/dl Est Cr Clr Drug Dosing 114.6 ml/min Est GFR ( Amer) 124.4 ml/min Est GFR (Non-Af Amer) 107.4 ml/min BUN/Creatinine Ratio 42.0 H (10-20) Glucose 87 (70-99) mg/dl Calcium 9.1 (8.5-10.1) mg/dl Magnesium 1.7 L (1.8-2.4) mg/dl PG Care Time/CCT Total # of Minutes Spent Total Time Spent with Patient: Total time spent is greater than 50% in coordination of care (as documented) at patient's floor/unit and/or counseling patient: Coding Level of Care Code 67455 Subseq Hosp Care Lvl 2 Diagnoses Acute respiratory failure J96.01; J96.02 Respiratory failure complication: hypoxia and hypercapnia Multifocal pneumonia J18.9 Bacteremia R78.81 Aspiration into lower respiratory tract T17.800A Zenker's diverticulum K22.5 COPD (chronic obstructive pulmonary disease) J44.9 COPD type: unspecified COPD Hypothyroid E03.9 Hyperlipidemia E78.5 GERD (gastroesophageal reflux disease) K21.9 Current smoker F17.200 Hyponatremia E87.1 Anemia D64.9 HTN (hypertension), benign I10 Mood disorder F39 Hypomagnesemia E83.42 Foot drop, bilateral M21.371; M21.372 DVT prophylaxis Z29.9 (1) Acute respiratory failure Respiratory failure complication: hypoxia and hypercapnia Qualified Code(s): J96.01 - Acute respiratory failure with hypoxia; J96.02 - Acute respiratory failure with hypercapnia (2) COPD (chronic obstructive pulmonary disease) COPD type: unspecified COPD Qualified Code(s): J44.9 - Chronic obstructive pu lmonary disease, unspecified
[2020-11-22] MEDS: ALBUT/IPRATROP 3MG/0.5MG NEB 3 ML VIAL INH SCH ×3 (00:07→13:07)
[2020-11-22] MEDS: LEVOTHYROXINE SODIUM 75 MCG TABLET PO SCH (05:34)
[2020-11-22] MEDS: lamoTRIgine 25 MG TAB PO SCH (06:22)
[2020-11-22] MEDS: ACETYLCYSTEINE 20% INHAL SOLN 4ML ***DISPENSED BY RESP. INH SCH (07:37)
[2020-11-22] MEDS: IRON POLYSACCHARIDE COMPLEX 150 MG CAPSULE PO SCH (07:52)
[2020-11-22] MEDS: GABAPENTIN 600 MG TAB PO SCH ×2 (07:52→15:35)
[2020-11-22] MEDS: guaiFENesin 600 MG TABCR PO SCH (07:53)
[2020-11-22] MEDS: METOPROLOL SUCC 25MG EXT REL TAB PO SCH (07:53)
[2020-11-22] MEDS: SACCHAROMYCES BOULARDII 250 MG CAP PO SCH (07:53)
[2020-11-22] MEDS: oxyCODONE HCL IR 5 MG TAB (IMMEDIATE RELEASE) PO PRN ×2 (07:53→15:34)
[2020-11-22] MEDS: PANTOprazole 40 MG TAB PO SCH (07:53)
[2020-11-22] MEDS: CYANOCOBALAMIN 500 MCG TABLET (VITAMIN B-12) PO SCH (07:54)
[2020-11-22] MEDS: VENLAFAXINE HCL XR 75 MG CAPXR PO SCH (07:55)
[2020-11-22] MEDS: dilTIAZem HCL 240 MG CAPCR PO SCH (07:56)
[2020-11-22] MEDS: ASPIRIN 81 MG ECTAB PO SCH (07:57)
[2020-11-22] MEDS: ACETAMINOPHEN 500 MG TAB PO SCH ×2 (08:00→15:35)
[2020-11-22] MEDS: UMECLIDINIUM/VILANTEROL 62.5/25MCG 7 PUFFS/INHALER INH SCH (08:04)
[2020-11-22] MEDS: NICOTINE 14 MG/24 HR PATCH TD SCH (08:05)
[2020-11-22] MEDS: ENOXAPARIN INJ 40 MG/0.4 ML SYR SQ SCH (08:06)
[2020-11-22] MEDS: ERGOCALCIFEROL 50,000 UNITS 1250 MCG CAP PO SCH (08:06)
[2020-11-22] MEDS: LIDOCAINE 5% 1 PATCH TD SCH (08:06)
[2020-11-22] MEDS ORDERED: predniSONE 10 MG TABLET PO SCH (09:00)
[2020-11-22] MEDS ORDERED: CEFDINIR 300 MG CAP PO STA (15:57)
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
== END 2020-11-22 17:39 | DRG 177 ==
LOC: ED 11:19 → 2S 14:31 → SUATTDRO 14:31 → 2S 17:29 → 3W 11-20 18:29